=== PATIENT | male | born 1940 | race Caucasian/White ===

== ENCOUNTER → 2024-03-25 | Outpatient (CLI) | payer MEDICARE, SELFPAY ==
[2024-03-25 09:01] LABS: B-Type Natriuretic Peptide < 20 pg/mL (0-100)
[2024-03-25 09:07] LABS: Albumin, Serum 4.4 gm/dL (3.4-4.8); Anion Gap 3 (7-16); BUN/Creatinine Ratio 14 Ratio (12-20); Blood Urea Nitrogen 21 mg/dL (9-23); Calcium 9.6 mg/dL (8.3-10.6); Calcium (Corrected) 9.6 mg/dL (8.5-10.1); Carbon Dioxide 31.8 mMol/L (20.0-31.0); Chloride 102 mMol/L (98-107); Creatinine (Component) 1.5 mg/dL (0.6-1.3); Glucose 92 mg/dL (74-106); Osmolality,Calculated 276 (275-295); Phosphorous 3.6 mg/dL (2.4-5.1); Potassium 4.6 mMol/L (3.4-5.1); Sodium 137 mMol/L (136-145); eGFR 46 See Note
== END | disposition home or self-care (01) ==
LOC: COPL 07:33
PROVIDERS: PCP Specialist; Referring Provider Specialist; Visit Provider Specialist
DX: I50.22 Chronic systolic (congestive) heart failure (principal)
CPT/HCPCS: 36415; 80069; 83880

== ENCOUNTER → 2024-04-24 | Outpatient (CLI) | payer MEDICARE, SELFPAY ==
[2024-04-24 10:36] LABS: Basophils # (Auto) 0.1 Thou/mm3 (0.0-0.2); Basophils % (Auto) 1 % (0-2.5); Eosinophils # (Auto) 0.2 Thou/mm3 (0.0-0.5); Eosinophils % (Auto) 3 % (0-10); Hematocrit 43.3 % (41.0-53.0); Hemoglobin 14.5 g/dL (13.5-16.0); Immature Granulocytes % (Auto) 0 % (0-0); Immature Granulocytes Auto 0.01 Thou/mm3 (0.00-0.00); Lymphocytes # (Auto) 1.5 Thou/mm3 (1.0-4.8); Lymphocytes % (Auto) 28 % (10-50); Mean Corpuscular HGB Conc 33.5 g/dl (31.0-37.0); Mean Corpuscular Volume 102 fL (80-100); Monocytes # (Auto) 0.6 Thou/mm3 (0.0-0.8); Monocytes % (Auto) 12 % (0-12); Neutrophils # (Auto) 2.9 Thou/mm3 (1.8-7.7); Neutrophils % (Auto) 56 % (37-80); Nucleated Red Blood Cell % 0 /100 WBC (0); Platelet Count 208 Thou/mm3 (140-440); RDW Standard Deviation 50.3 fL (35.1-43.9); Red Blood Count 4.26 Miln/mm3 (4.50-5.90); White Blood Count 5.2 Thou/mm3 (3.8-10.6)
[2024-04-24 10:59] LABS: Sed Rate (ESR) 8 mm/hr (0-20)
[2024-04-24 11:02] LABS: Alanine Aminotransferase 28 U/L (10-49); Albumin, Serum 4.4 gm/dL (3.4-4.8); Albumin/Globulin Ratio 2.3 (1.2-2.2); Alkaline Phosphatase 63 U/L (46-116); Anion Gap 4 (7-16); Aspartate Amino Transferase 23 U/L (0-34); BUN/Creatinine Ratio 14 Ratio (12-20); Bilirubin,Total 0.8 mg/dL (0.3-1.2); Blood Urea Nitrogen 21 mg/dL (9-23); C-Reactive Protein < 0.4 mg/dL (0.0-0.9); Calcium 9.6 mg/dL (8.3-10.6); Calcium (Corrected) 9.6 mg/dL (8.5-10.1); Carbon Dioxide 32.9 mMol/L (20.0-31.0); Chloride 100 mMol/L (98-107); Creatinine (Component) 1.5 mg/dL (0.6-1.3); Globulin 1.9 gm/dL (2.3-3.5); Glucose 102 mg/dL (74-106); Osmolality,Calculated 276 (275-295); Potassium 4.6 mMol/L (3.4-5.1); Procalcitonin 0.07 ng/ml (0.0-0.49); Sodium 137 mMol/L (136-145); Total Protein 6.3 gm/dL (5.7-8.2); eGFR 46 See Note
== END | disposition home or self-care (01) ==
LOC: COPL 09:09
PROVIDERS: PCP Specialist; Referring Provider Orthopaedic Surgery; Visit Provider Orthopaedic Surgery
DX: T84.53XA Infection and inflammatory reaction due to internal right knee prosthesis, initial encounter (principal)
CPT/HCPCS: 36415; 80053; 84145; 85025; 85652; 86140

== ENCOUNTER 2024-05-12 06:43 | Observation (INO) | payer MEDICARE, SELFPAY ==
[2024-05-12] VITALS (9 sets, daily range): BP systolic 146–173; BP diastolic 66–84; PULSE 70–84; RESP 16–23; TEMP 36.4–36.6; O2SAT 94–98; BMI 32.6
--- NOTE | 2024-05-12 07:15 | XR_ITS ---
Examination: Tibia-Fibula, left , 2 views Technique: Tibia-fibula AP lateral 2 views Date and time of exam: May 12, 2024 0714 hrs. Indications: Patient fell today with injury to the lower leg, lower leg pain. Findings: No acute fracture Partial visualization left knee arthroplasty Impression: No acute fracture
--- NOTE | 2024-05-12 07:15 | XR_ITS ---
Examination: Knee, left , 3 views Technique: Knee AP, lateral, oblique 3 views Date and time of exam: May 12, 2024 0742 hrs. Indications: Patient fell today with injury to the knee, knee pain. Findings: Prominent osteopenia Total left knee arthroplasty Satisfactory alignment No fracture No loosening of the prosthetic components Impression: No acute fracture
--- NOTE | 2024-05-12 07:17 | PD.EDRME ---
Rapid Medical Screening Exam E Arrival date/time: 05/12/24 06:43 This is an 84-year-old male that comes in with complaints of swelling to his left lower extremity. Patient had a fall a couple days ago. Patient tripped. Patient reports no loss of consciousness but he injured his left knee and lateral lower leg. Patient has a lot of swelling to his left lower extremity. Patient patient reports an episode of vomiting yesterday. Patient denies head or neck pain. Patient denies any other injuries. Patient reports that he takes Coumadin for atrial flutter. Patient has a history of hyperlipidemia, hypothyroidism, hernia repair in the past. I have greeted and performed a focused initial assessment of this patient. Initial appropriate labs ordered at this time. A comprehensive ED assessment and evaluation of the patient and analysis of all test and completion of medical decision making process will be conducted by additional ED provider. Chief Complaint: Extremity Injury, Lower Time Seen by Provider: 05/12/24 06:54 Vital signs: Vital Signs Temperature 97.8 F 05/12/24 06:51 Pulse Rate 72 05/12/24 06:51 Respiratory Rate 19 05/12/24 06:51 Blood Pressure 158/68 H 05/12/24 06:51 Pulse Oximetry (%) 96 05/12/24 06:51 Oxygen Delivery Method Room Air 05/12/24 06:51
[2024-05-12 07:43] LABS: Basophils % (Auto) 0 % (0-2.5); Eosinophils # (Auto) 0.1 Thou/mm3 (0.0-0.5); Eosinophils % (Auto) 2 % (0-10); Hematocrit 35.1 % (41.0-53.0); Hemoglobin 11.8 g/dL (13.5-16.0); Immature Granulocytes % (Auto) 0 % (0-0); Immature Granulocytes Auto 0.03 Thou/mm3 (0.00-0.00); Lymphocytes # (Auto) 0.9 Thou/mm3 (1.0-4.8); Lymphocytes % (Auto) 13 % (10-50); Mean Corpuscular HGB Conc 33.6 g/dl (31.0-37.0); Mean Corpuscular Hemoglobin 33.8 pg (25.0-35.0); Mean Corpuscular Volume 101 fL (80-100); Monocytes # (Auto) 1.1 Thou/mm3 (0.0-0.8); Monocytes % (Auto) 16 % (0-12); Neutrophils # (Auto) 4.7 Thou/mm3 (1.8-7.7); Neutrophils % (Auto) 69 % (37-80); Nucleated Red Blood Cell % 0 /100 WBC (0); Platelet Count 190 Thou/mm3 (140-440); RDW Standard Deviation 49.6 fL (35.1-43.9); Red Blood Count 3.49 Miln/mm3 (4.50-5.90); White Blood Count 6.9 Thou/mm3 (3.8-10.6)
[2024-05-12 08:04] LABS: Alanine Aminotransferase 24 U/L (10-49); Albumin, Serum 4.3 gm/dL (3.4-4.8); Alkaline Phosphatase 58 U/L (46-116); Anion Gap 5 (7-16); Aspartate Amino Transferase 16 U/L (0-34); BUN/Creatinine Ratio 12 Ratio (12-20); Bilirubin,Total 0.9 mg/dL (0.3-1.2); Blood Urea Nitrogen 17 mg/dL (9-23); Calcium 9.3 mg/dL (8.3-10.6); Calcium (Corrected) 9.3 mg/dL (8.5-10.1); Carbon Dioxide 30.6 mMol/L (20.0-31.0); Chloride 96 mMol/L (98-107); Creatinine (Component) 1.4 mg/dL (0.6-1.3); Estimated Creatinine Clearance 46.1 mL/min (>60); Globulin 2.1 gm/dL (2.3-3.5); Glucose 123 mg/dL (74-106); Osmolality,Calculated 267 (275-295); Potassium 4.5 mMol/L (3.4-5.1); Sodium 132 mMol/L (136-145); Total Protein 6.4 gm/dL (5.7-8.2); eGFR 50 See Note
--- NOTE | 2024-05-12 08:43 | PD.EDLOWEX ---
Lower Extremity Injury RME/HPI General Chief Complaint: Extremity Injury, Lower Stated Complaint: HEMATOMA LEFT LEG Time Seen by Provider: 05/12/24 06:54 Arrival date/time: 05/12/24 06:43 RME / HPI RME / HPI Narrative: 05/12/24 06:43 This is an 84-year-old male that comes in with complaints of swelling to his left lower extremity. Patient had a fall a couple days ago. Patient tripped. Patient reports no loss of consciousness but he injured his left knee and lateral lower leg. Patient has a lot of swelling to his left lower extremity. Patient patient reports an episode of vomiting yesterday. Patient denies head or neck pain. Patient denies any other injuries. Patient reports that he takes Coumadin for atrial flutter. Patient has a history of hyperlipidemia, hypothyroidism, hernia repair in the past. I have greeted and performed a focused initial assessment of this patient. Initial appropriate labs ordered at this time. A comprehensive ED assessment and evaluation of the patient and analysis of all test and completion of medical decision making process will be conducted by additional ED provider. DR. EDWARDS MAIN ED EVALUATION 84 year old male with history of atrial flutter on Coumadin, hypertension, hyperlipidemia, hypothyroidism presents to the ED for evaluation of lower extremity swelling and pain today. Reports he had a ground level mechanical fall 4 days ago Monday. Since fall has noticed pain to the left knee and laterally with bruising and swelling that is progressively worsening. No other injuries reported. Denies any pain to his hip, head injury, LOC, neck pain. Related Data Home Medications ?Medication ?Instructions ?Recorded ?Confirmed albuterol sulfate 90 mcg/actuation 1 puff inhalation DAILY ##0 10/04/14 01/06/24 aerosol inhaler (ProAir HFA) omeprazole 20 mg capsule,delayed 20 mg PO QDAY PRN GERD ##0 10/04/14 01/04/24 release (Prilosec) cholecalciferol (vitamin D3) 25 2,000 unit PO QDAY #0 tabs 11/28/16 01/04/24 mcg (1,000 unit) capsule (Vitamin D3) Multivits,Ca,Min/Iron/FA/Lycop 1 tab PO QDAY #0 tabs 05/26/17 01/04/24 (Centrum Men's Tablet) gabapentin 100 mg capsule 100 mg PO TID neuropathy #0 caps 05/26/17 01/04/24 levothyroxine 100 mcg PO QDAY hypothyroidism 06/07/23 01/04/24 simvastatin 10 mg PO QPM DM 2 06/07/23 01/04/24 potassium chloride 10 mEq 20 meq PO DAILY 01/04/24 01/04/24 tablet,extended release warfarin 5 mg tablet 5 mg PO DAILY 01/04/24 01/04/24 Previous Rx's ?Medication ?Instructions ?Recorded doxycycline hyclate 100 mg tablet 100 mg PO BID knee infection #60 10/08/14 tabs Allergies Allergy/AdvReac Type Severity Reaction Status Date / Time theophylline Allergy Severe Seizure Verified 05/12/24 06:46 celebrex AdvReac Unknown unknown Uncoded 05/12/24 06:46 Review of Systems Review of Systems Narrative Review of Systems: GEN: No fever, no chills EYES: No discharge, no pain HEENT: No ear pain, no congestion, no sore throat PULM: No shortness of breath, no cough, no congestion CV: No chest pain, no palpitations GI: No nausea, no vomiting, no diarrhea, no pain, no constipation : No frequency, no urgency and no dysuria MUSC/SKEL: +left knee pain, +left lower extremity swelling, no back pain SKIN: No rash NEURO: No weakness, no headache Past Medical History Past Medical History CARDIAC: Positive Cardiac Disorders, Hypercholesterolemia, Cellulitis and Hypertension RESPIRATORY: Positive Asthma GASTROINTESTINAL: Positive Diverticulosis and Obesity MUSCULOSKELETAL: Positive Osteomyelitis ENDOCRINE: Positive Endocrine Disorders, Diabetes Mellitus Type 2 and Hypothyroidism Family History FAMILY HISTORY: Positive Family Neurologic Problems (bro AAA, bro aneurysm of brain;), Family Psychiatric Problems, Family Respiratory Disorders, Family Gastrointestinal Problems and Family Cancer Surgical History SURGICAL: Positive Cardiac Catheterization, Eye Surgery and Abdominal Surgery Social History SMOKING STATUS: Never smoker SECOND HAND EXPOSURE: Yes SUBSTANCE USE: does not use ED Exam Narrative Physical exam: GENERAL APPEARANCE: Well hydrated, well nourished, in no acute distress. VITALS: All vitals were reviewed and the pulse ox is 96% on room air which is normal according to my interpretation. HEENT: Normocephalic, atramatic, EOMI, EACs are patent. Moist oromucosa. No jaundice NECK: Supple, no JVD or bruits. CARDIOVASCULAR: Heart regular without S3-S4 or murmur. No rubs or gallops. LUNGS/CHEST: Clear to auscultation bilaterally. No rales, rhonchi, or wheezing. Normal inspection. ABDOMEN: Soft, nontender, with normal bowel sounds. No pulsatile masses. No rebound, rigidity, or guarding. No incarcerated hernia. Normal inspection and palpation. EXTREMITIES: Left lower leg swollen with large hematoma medial to the left knee and posterior aspect of left knee, lateral to the left upper fibula measuring about 10cm long and 30cm wide. Palpable dorsalis pedis pulse. No edema, clubbing, or cyanosis. SKIN: Warm and dry without rashes. Normal inspection. MUSCULOSKELETAL: No gross deformity, full ROM all extremities NEURO: Alert and oriented x3. Cranial nerves II through XII grossly intact. There are no other motor or sensory deficits noted. PSYCHIATRIC: Normal mood and affect. No psychosis. Course Quality Measures none Orders Category Date Time Status CT Screening NOW Care 05/12/24 08:[address] LE LT w con Stat Exams 05/12/24 08:47 Completed XR knee LT 3V Stat Exams 05/12/24 07:15 Completed XR tibia fibula LT 2V Stat Exams 05/12/24 07:15 Completed CBC Stat Lab 05/12/24 07:25 Completed Comprehensive Metabolic Panel Stat Lab 05/12/24 07:25 Completed PT [Prothrombin Time with INR] Stat Lab 05/12/24 07:25 Completed Tetanus, Diphtheria Toxoids/Pf [Tenivac-Adult] Med 05/12/24 08:47 Discontinued 0.5 ml IMI .ONCE ONE Vital Signs Vital signs: Vital Signs Temperature 97.8 F 05/12/24 06:51 Pulse Rate 72 05/12/24 06:51 Respiratory Rate 19 05/12/24 06:51 Blood Pressure 158/68 H 05/12/24 06:51 Pulse Oximetry (%) 96 05/12/24 06:51 Oxygen Delivery Method Room Air 05/12/24 06:51 Extremity Injury, Lower MDM Narrative MDM Narrative:: Ladan Meredith am scribing for and in the presence of Dr. Edwards. CBC unremarkable. CMP negative. Pro time however is leigh high at 50. INR of 5. X-ray of the left knee interpreted by me: No fracture. No dislocation. Hardware is intact. Positive for soft tissue swelling. No effusion. No foreign body other than hardware from the surgery. No free air. X-ray of the left tib-fib interpreted by me: No fracture. No dislocation. Hardware is intact at the knee. Positive for some soft tissue swelling proximally. Patient has a good pulse in the left dorsalis pedis. And he has intact CSM full range of motion of the left foot. However he has a large hematoma in the lateral aspect of the left proximal tib-fib extending to behind the left knee. In an area measuring approximately 15 cm wide and 20 cm long. He also had a small hematoma in the left knee medial aspect. There is no evidence of compartment syndrome at this time. The reason why I gave him tetanus vaccine is because he does have some abrasion on the skin. No laceration to be repaired. CT of the left lower extremity interpreted by me: Hardware is intact. In fact the hardware causing the shadow. He does have a hematoma lateral to the left knee and slightly below it. No evidence of abscess. He has calcification of the vessels. But clinically speaking he does have good left dorsalis pedis pulse. 12:50 PM, I spoke to and discussed with Dr. Vigil, hospitalist on-call. And he agreed to admit the patient for further evaluation treatment and observation. Patient data External records reviewed:: [facility] previous records (I reviewed ED visit on 01/04/2024 through 01/06/2024) Clinical information provided by:: patient Social determinants that could affect healthcare access:: none Patient has the following chronic illnesses:: atrial flutter on Coumadin, hypertension, hyperlipidemia, hypothyroidism How is presenting disease/condition affected by chronic disease/condition?: exacerbated by Evaluation data The following diagnostics were reviewed and interpreted by me:: lab results and radiology exam(s) Lab and/or radiology exams considered but not ordered:: None Interpretation Summary: Ordering Physician: Marie Tatum NP Date of Service: 05/12/24 Procedure(s): XR knee LT 3V Accession Number(s): [id number] cc: Jose Mendoza MD; Roger Sewell MD; Marie Tatum NP~ Examination: Knee, left , 3 views Technique: Knee AP, lateral, oblique 3 views Date and time of exam: May 12, 2024 0742 hrs. Indications: Patient fell today with injury to the knee, knee pain. Findings: Prominent osteopenia Total left knee arthroplasty Satisfactory alignment No fracture No loosening of the prosthetic components Impression: No acute fracture Dictated By: Roger Sewell MD Signed By: <Electronically signed by Roger Sewell MD in OV> 05/12/24 0836 Ordering Physician: Marie Tatum NP Date of Service: 05/12/24 Procedure(s): XR tibia fibula LT 2V Accession Number(s): [id number] cc: Jose Mendoza MD; Roger Sewell MD; Marie Tatum NP~ Examination: Tibia-Fibula, left , 2 views Technique: Tibia-fibula AP lateral 2 views Date and time of exam: May 12, 2024 0714 hrs. Indications: Patient fell today with injury to the lower leg, lower leg pain. Findings: No acute fracture Partial visualization left knee arthroplasty Impression: No acute fracture Dictated By: Roger Sewell MD Signed By: <Electronically signed by Roger Sewell MD in OV> 05/12/24 0836 Ordering Physician: Marcos Edwards MD Date of Service: 05/12/24 Procedure(s): CT LE LT w con Accession Number(s): [id number] cc: Jose Mendoza MD; Roger Sewell MD; Marcos Edwards MD~ Examination: CT left lower extremity with intravenous contrast 2-D sagittal reconstructions. 2-D coronal reconstructions. 3-D reconstructions. Date and time of exam:May 12, 2024 10:38 PM Indications: Patient fell today with injury to the left lower extremity left lower extremity swelling and pain CTDI: vol (mGy):12.3 DLP: (mGycm):1504 Technique: Multiple 1.25 mm axial sections of the left lower extremity with intravenous contrast, 30 cc Isovue-300 have been obtained. 2-D sagittal and coronal reconstructions have been obtained. 3-D reconstructions have been obtained. Low dose protocols were performed. One or more of the following dose reduction techniques were used; automated exposure control, adjustment of the mA and/or KV according to patient size, use of iterative reconstruction technique. Findings: Hematoma with low density center in the soft tissue lateral to the proximal tibia fibula, 10 x 7 x 10 cm Femur tibia-fibula appear intact Mild edema in the subcutaneous fatty tissue Old fracture deformity distal left femoral shaft No acute fracture or hip dislocation Impression: Soft tissue hematoma lateral to the proximal tibia fibula, 10 x 7 x 10 cm Dictated By: Roger Sewell MD Signed By: <Electronically signed by Roger Sewell MD in OV> 05/12/24 1216 Medications / Prescriptions Medications or Prescriptions considered but not ordered:: None Medication administrations:: Medication Administration History Discontinued Medications Tetanus/Diphtheria Toxoids (Tetanus,Diphtheria Toxoids/Pf (Adult) 0.5 Ml Syringe) 0.5 ml IMi .ONCE ONE Stop: 05/12/24 08:48 Last Admin: 05/12/24 10:46 Dose: 0.5 ml Documented By: VG See above Consultations Consultation(s) initiated? (list below): Yes Consultation #1 (Physician, Specialty, Details): I spoke with hospitalist Dr. Vigil. Discussed patients PMHx, HPI, ED course, exam findings, labs, and radiology results. The hospitalist agree to accept the patient for admission. Time: 12:48 Diagnosis Most likely diagnosis given after review of the tests above:: Hematoma Admission Indicated Admission indicated?: indicated Admission Request Was there a request for admission?: Yes Admission Attestation Admission request attestation: Discussed case with [] from Hospitalist service regarding admission. Discussed patients ED course, exam findings, labs, and radiology results. The Hospitalist [agrees,declines] to accept the patient for admission. Disposition Plan Disposition Plan: Admit Discharge Plan Plan Patient Disposition: Admit Acute Care w/in Hospital Disposition Comment: Stable for admit Prescriptions/Referrals Prescriptions/Med Rec: No Action omeprazole [Prilosec] 20 MG capsule,delayed release(/EC) 20 mg PO QDAY PRN (Reason: GERD) Qty: 0 Patient Comments: TO SUPPRESS GASTRIC ACID SECRETIONS albuterol sulfate [ProAir HFA] 8.5 GM HFA aerosol inhaler 1 puff Inhalation DAILY Qty: 0 doxycycline hyclate 100 MG tablet 100 mg PO BID Qty: 60 1RF cholecalciferol (vitamin D3) [Vitamin D3] 1,000 UNIT tablet 2,000 unit PO QDAY Qty: 0 gabapentin 100 MG capsule 100 mg PO TID Qty: 0 Patient Comments: Pt takes 1 tab in am,2 tabs at HS Multivits,Ca,Min/Iron/FA/Lycop (Centrum Men's Tablet) 1 EACH tablet 1 tab PO QDAY Qty: 0 warfarin 5 mg Tablet 5 mg PO DAILY potassium chloride 10 mEq Tablet Extended Release 20 meq PO DAILY Hold Instructions: Resume on 01/12/24. 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
--- NOTE | 2024-05-12 08:47 | XR_ITS ---
Examination: CT left lower extremity with intravenous contrast 2-D sagittal reconstructions. 2-D coronal reconstructions. 3-D reconstructions. Date and time of exam:May 12, 2024 10:38 PM Indications: Patient fell today with injury to the left lower extremity left lower extremity swelling and pain CTDI: vol (mGy):12.3 DLP: (mGycm):1504 Technique: Multiple 1.25 mm axial sections of the left lower extremity with intravenous contrast, 30 cc Isovue-300 have been obtained. 2-D sagittal and coronal reconstructions have been obtained. 3-D reconstructions have been obtained. Low dose protocols were performed. One or more of the following dose reduction techniques were used; automated exposure control, adjustment of the mA and/or KV according to patient size, use of iterative reconstruction technique. Findings: Hematoma with low density center in the soft tissue lateral to the proximal tibia fibula, 10 x 7 x 10 cm Femur tibia-fibula appear intact Mild edema in the subcutaneous fatty tissue Old fracture deformity distal left femoral shaft No acute fracture or hip dislocation Impression: Soft tissue hematoma lateral to the proximal tibia fibula, 10 x 7 x 10 cm
[2024-05-12 09:49] LABS: INR 5.1 (0.9-1.3); Prothrombin Time 50.1 Seconds (9.0-12.2)
[2024-05-12] MEDS: TETANUS,DIPHTHERIA TOXOIDS/PF (ADULT) 0.5 ML SYRINGE IMi (10:46)
--- NOTE | 2024-05-12 13:16 | XR_ITS ---
Examination: AP chest single view Technique one AP portable sitting chest single view Exam date and time: May 12, 2024 1345 hrs. Comparison January 04, 2024 Indications: Shortness of breath today. Findings: Opacity left base retrocardiac obscuring detail left hemidiaphragm Minor elevation right hemidiaphragm No major cardiac enlargement Impression: Early pneumonia left base
--- NOTE | 2024-05-12 13:23 | PD.RESHP ---
Documentation for date of: 05/12/24 [facility] History of Present Illness History of present illness: This is an 83-year-old male with PMHx of atrial flutter on WARFARIN, HTN, HLD, and hypothyroidism presenting with left knee swelling following a fall. 5 days ago, on Monday he fell after tripping over a curb, and landed on his left knee. Initially patient having mild left knee pain. However last couple days he noticed worsening swelling and discoloration of left knee as well as increased pain. Has been trying compression socks but has not relieved the swelling. Rates the pain an 8 out of 10, worse with movement and to touch. Denies head trauma, loss of consciousness, headaches, fevers, chills, chest pain, shortness of breath, GI or urinary symptoms. Patient has been on WARFARIN for atrial flutter, state insurance does not cover DOAC or NOAC. ED COURSE: Afebrile, BP 158/68, HR 72, RR 19, satting 96% on room air WBC 6.9, Hgb 11.8 (baseline 14-15), PLT 190 PT 50.1, INR 5.1 Sodium 132, creatinine 1.4 near baseline Left tibia/fibular x-ray without acute fracture left lower extremity CT soft tissue hematoma lateral to the proximal tibia/fibula, 10 x 7 x 10 cm in size Hospitalist team was consulted. Will admit the patient for optimizing INR by monitoring hematoma. We gave VITAMIN K 1 milligram. Cardiology, Dr. Walsh, has been consulted. Pending recommendations. PMHx: Atrial flutter, HTN, HLD, hypothyroidism PSHx: Bilateral knee replacements, 2002 in 2004 MEDS: WARFARIN 5 mg, AMIODARONE 200 mg daily, SPIRONOLACTONE 25 mg daily, BUMEX 0.5 mg daily, SIMVASTATIN 10 mg, LEVOTHYROXINE 100 mcg, GABAPENTIN 100 mg, DOXYCYCLINE 100 mg. ALLERGIES: THEOPHYLLINE (seizures), CELECOXIB (unknown) SH: Denies history of tobacco, alcohol, or drug use. Exam Vital Signs Temp Pulse Resp BP Pulse Ox O2 Del Method 97.9 F 73 16 163/76 H 97 Room Air 05/12/24 12:00 05/12/24 12:00 05/12/24 12:05/12/24 12:05/12/24 12:05/12/24 10:02 Narrative Exam GENERAL: Normal appearing elderly male, NAD HEENT: NCAT.?RUBI. Oral mucosa is moist. Patent Nares NECK: Supple, nontender, no thyromegaly, no meningismus, no JVD, no step offs CHEST: Symmetrical, atraumatic, and with equal expansion, Nontender on palpation no deformity and no crepitus. CARDIOVASCULAR: RRR, no m/g/r LUNGS: Bilateral wheezing on exam, no rales or rhonchi. Symmetrical chest rise. No intercostal subcostal retraction. ABDOMEN: Soft, flat, nontender. No guarding/rebound tenderness/masses. +BS EXTREMITIES: Left knee hematoma about 10 x 10 x 6 cm in size, tender to touch, mild blood oozing at different sites around the hematoma. Left lower extremity 3+ nonpitting edema below the the knee. No signs of compartment syndrome. Right lower extremity 1+ edema. Pulses intact bilaterally SKIN: Warm and dry, no jaundice/rashes. MSK: No lumbar or midline, no CVA, no paraspinal muscle spasm or tenderness. NEURO: MONTERROSO x4, CN II-XII grossly intact.?No focal neurologic deficits. PSYCHIATRIC: Normal mood and affect, cooperative, no SI or HI or hallucinations. Results: Labs 05/12/24 07:25 05/12/24 07:25 Labs: Short CBC 05/12/24 Range/Units 07:25 WBC 6.9 (3.8-10.6) Thou/mm3 Hgb 11.8 L (13.5-16.0) g/dL Hct 35.1 L (41.0-53.0) % Plt Count 190 (140-440) Thou/mm3 BMP 05/12/24 07:25 Sodium 132 L Potassium 4.5 Chloride 96 L Carbon Dioxide 30.6 BUN 17 Creatinine 1.4 H Glucose 123 H Calcium 9.3 Liver Function 05/12/24 Range/Units 07:25 Total Bilirubin 0.9 (0.3-1.2) mg/dL AST 16 (0-34) U/L ALT 24 (10-49) U/L Alkaline Phosphatase 58 (46-116) U/L Albumin 4.3 (3.4-4.8) gm/dL Quality Measures Quality Measures none Advance care planning discussed with:: patient Medications Home Medications and Allergies Home Medications ?Medication ?Instructions ?Recorded ?Confirmed ?Type albuterol sulfate 90 mcg/actuation 1 puff inhalation DAILY ##0 10/04/14 01/06/24 History aerosol inhaler (ProAir HFA) omeprazole 20 mg capsule,delayed 20 mg PO QDAY PRN GERD ##0 10/04/14 01/04/24 History release (Prilosec) cholecalciferol (vitamin D3) 25 2,000 unit PO QDAY #0 tabs 11/28/16 01/04/24 History mcg (1,000 unit) capsule (Vitamin D3) Multivits,Ca,Min/Iron/FA/Lycop 1 tab PO QDAY #0 tabs 05/26/17 01/04/24 History (Centrum Men's Tablet) gabapentin 100 mg capsule 100 mg PO TID neuropathy #0 caps 05/26/17 01/04/24 History levothyroxine 100 mcg PO QDAY hypothyroidism 06/07/23 01/04/24 History simvastatin 10 mg PO QPM DM 2 06/07/23 01/04/24 History potassium chloride 10 mEq 20 meq PO DAILY 01/04/24 01/04/24 History tablet,extended release warfarin 5 mg tablet 5 mg PO DAILY 01/04/24 01/04/24 History Allergies Allergy/AdvReac Type Severity Reaction Status Date / Time theophylline Allergy Severe Seizure Verified 05/12/24 06:46 celebrex AdvReac Unknown unknown Uncoded 05/12/24 06:46 Visit Medications Acetaminophen (Acetaminophen 325 Mg Tablet) 650 mg PO Q6H PRN PRN Reason: Fever >100.1 Stop: 06/11/24 13:13 Hydrocodone Bitart/Acetaminophen (Hydrocodone/Apap 10/325 Tab) 1 tab PO Q4H PRN PRN Reason: Pain Scale 4-10 Stop: 05/17/24 13:13 Amiodarone HCl (Amiodarone Hcl 200 Mg Tablet) 200 mg PO DAILY [facility] Stop: 06/11/24 13:29 Atorvastatin Calcium (Atorvastatin Calcium 10 Mg Tablet) 10 mg PO HS [facility] Stop: 06/11/24 20:59 Bumetanide (Bumetanide 0.5 Mg Tablet) 2 mg PO DAILY [facility] Stop: 06/12/24 08:59 Gabapentin (Gabapentin 100 Mg Capsule) 100 mg PO BID JUAN Stop: 06/11/24 13:29 Ondansetron HCl (Ondansetron Inj 2 Mg/Ml Inj 2 Ml) 4 mg IV Q6H PRN; Protocol PRN Reason: NAUSEA OR VOMITING Stop: 06/11/24 13:13 Pantoprazole Sodium (Pantoprazole Inj 40 Mg Vial) 40 mg IV QDAY [facility] Stop: 06/11/24 13:19 Spironolactone (Spironolactone 25 Mg Tablet) 25 mg PO DAILY JUAN Stop: 06/12/24 08:59 Discontinued Medications Cyanocobalamin (Cyanocobalamin Inj 1,000 Mcg/Ml Vial) 1,000 mcg IM X1 ONE Stop: 05/12/24 13:18 Phytonadione (Phytonadione Inj 1 Mg/0.5 Ml Syr) 1 mg PO X1 ONE Stop: 05/12/24 13:17 Tetanus/Diphtheria Toxoids (Tetanus,Diphtheria Toxoids/Pf (Adult) 0.5 Ml Syringe) 0.5 ml IMi .ONCE ONE Stop: 05/12/24 08:48 Last Admin: 05/12/24 10:46 Dose: 0.5 ml Vitamin B Complex/Vit C/Folic Acid (Vit B12/Vit C/Fa (Nephrovite) Tablet) 1 tab PO X1 ONE Stop: 05/12/24 13:18 Assessment & Plan Plan In summary: 83-year-old male with PMHx of a flutter on WARFARIN, HTN, HLD, hypothyroidism presenting with expanding hematoma of the left knee secondary to supratherapeutic INR 5.1. Given VITAMIN K 1 mg once. Pending cardiology recommendations. Left lower extremity hematoma Supratherapeutic INR Atrial flutter, on COUMADIN Presenting with left lower extremity hematoma following a fall. Discrete swelling over hematoma on exam, with blood oozing of multiple sites only hematoma, 3+ left lower extremity edema below the knee. No signs of compartment syndrome. Pulses intact bilaterally. Patient on COUMADIN therapy for atrial flutter, states insurance does not cover DOAC/NOAC. No head trauma. No focal neurological deficits. Supratherapeutic INR 5.1. ? Holding WARFARIN ? S/p VITAMIN K 1 mg x 1 ? Resumed home AMIODARONE 200 mg daily ? Monitoring INR Q6H ? Wound care ? Pending EKG ? Pending troponin ? Pending cardiology recommendations ? CHF exacerbation Admits to worsening shortness of breath, easily fatigued upon walking. On exam there was bilateral lower extremity pitting edema worse on the left 2/2 hematoma. Lung exam showed wheezing but no rales or rhonchi. Most recent echo 12/2023 EF 50-55%, normal LV size/function. CXR showed early pneumonia, no vascular congestion ? Resumed home BUMEX 0.5 mg daily ? Holding home SPIRONOLACTONE 25 mg daily 2/2 kidney function ? Follow-up echocardiogram HTN, HLD, hypothyroidism History of above, on home meds. BP 158/82, HR 71. TSH 10.28 from 12/2023. Lipid panel from 12/2023 showed TG 313, HDL 61. Patient on home SIMVASTATIN 10 mg daily. Low benefit for statin and age greater than 75-year-old. ? Resumed home AMIODARONE, SPIRONOLACTONE, BUMEX as above ? Increased home SIMVASTATIN dose from 10 to 40 mg daily ? Resumed home LEVOTHYROXINE 100 mg AC BR ? Pending TSH Asthma History of asthma. Mild bilateral wheezing on exam. No signs or symptoms of asthma exacerbation. ? Resumed home ALBUTEROL inhaler q.2h. PRN Health maintenance Diet: Cardiac GI prophylaxis: PROTONIX DVT prophylaxis: Not indicated, INR 5.1 Antibiotics: None CODE STATUS: Full code Disposition: Cardiology recommendations, INR optimization. Patient case was discussed with attending, Dr. Norm Vigil MD and senior resident Dr. Landa. Chandni Srinivasan DO PGYI Attending Provider Attestation/Addendum I reviewed labs, imaging, EKG, home medications and prior available records. Face to face evaluation was performed by me. I have personally examined the patient and discussed assessment and plan with the IM team. I reviewed the resident note and agree with the plan with exceptions as below. Ground-level fall Left lower extremity hematoma Atrial flutter on warfarin, controlled ventricular rate Supratherapeutic INR Stop warfarin Gave 1 mg p.o. vitamin K given INR more than 5 Monitor PTT/INR Monitor H&H Consulted cardiology PT evaluation
[2024-05-12] MEDS: PANTOPRAZOLE INJ 40 MG VIAL IV (13:32)
[2024-05-12] MEDS: GABAPENTIN 100 MG CAPSULE PO ×2 (13:34→20:53)
[2024-05-12] MEDS: AMIODARONE HCL 200 MG TABLET PO (13:36)
[2024-05-12] MEDS: PHYTONADIONE INJ 1 MG/0.5 ML SYR PO (13:39)
--- NOTE | 2024-05-12 13:39 | PC.NURSE ---
Dr. Srinivasan and Dr. Landa bedside talking with pt. and pt.'s caregiver.
[2024-05-12] MEDS: CYANOCOBALAMIN INJ 1,000 mCg/ML VIAL 1000 MCG IM (13:57)
[2024-05-12] MEDS: VIT B12/Vit C/FA (Nephrovite) TABLET 1 TAB PO (14:00)
[2024-05-12 15:46] LABS: B-Type Natriuretic Peptide < 20 pg/mL (0-100); Troponin I < 0.020 ng/mL (0.0-0.045)
--- NOTE | 2024-05-12 16:04 | PD.ADDPROG ---
Addendum Progress Note Addendum Date of report being addended: 05/13/24 Narrative: I reviewed labs, imaging, EKG, home medications and prior available records. Face to face evaluation was performed by me. I have personally examined the patient and discussed assessment and plan with the IM team. I reviewed the resident note and agree with the plan with exceptions as below. Ground-level fall Left lower extremity hematoma Atrial flutter on warfarin, controlled ventricular rate Supratherapeutic INR Stop warfarin Gave 1 mg p.o. vitamin K given INR more than 5 Monitor PTT/INR Monitor H&H Consulted cardiology PT evaluation
[2024-05-12] MEDS: INSULIN LISPRO (AdmeLOG) 1 UNIT/0.01 ML UNIT SC ×2 (17:52→20:53)
[2024-05-12] MEDS: guaiFENesin SYRUP 200 MG/10 ML UDC PO ×2 (17:56→23:33)
[2024-05-12 18:44] LABS: INR 3.9 (0.9-1.3)
[2024-05-12 18:48] LABS: Prothrombin Time 38.6 Seconds (9.0-12.2)
[2024-05-12] MEDS: ALBUTEROL INH 8 GM 2 PUFF INH (20:26)
[2024-05-12] MEDS: ATORVASTATIN CALCIUM 20 MG TABLET 40 MG PO (20:53)
[2024-05-12 22:04] LABS: Troponin I < 0.020 ng/mL (0.0-0.045)
[2024-05-12 23:52] LABS: INR 3.3 (0.9-1.3)
[2024-05-12 23:54] LABS: Prothrombin Time 32.9 Seconds (9.0-12.2)
[2024-05-13] VITALS (8 sets, daily range): BP systolic 132–154; BP diastolic 60–79; PULSE 75–83; RESP 17–20; TEMP 36.2–37.4; O2SAT 93–96
[2024-05-13] MEDS: PHYTONADIONE INJ 10 MG/ML AMP SC (00:36)
--- NOTE | 2024-05-13 01:39 | ESCONSULT_ITS ---
RE: RAMILA HICKS : 1940 DATE OF CONSULTATION: 05/12/2024 DATE OF CONSULTATION: 05/12/2024 CONSULTING PHYSICIANS: Hospitalist and Dr. Norm Vigil MD REASON FOR CONSULTATION: Evaluation of elevated PT/INR and swelling of the knee following a fall. Known history of atrial flutter, paroxysmal, on warfarin. HISTORY OF PRESENT ILLNESS: The patient is an 84-year-old male with a past medical history of [id number] hypertension, HFpEF, atrial flutter paroxysmal episodes, on warfarin, hypothyroidism, presented to the hospital because of left knee swelling following a fall 5 days ago. He fell after tripping over a curb. The patient initially had some left- sided pain with discoloration of left knee as well as increased pain. He came to the hospital with these symptoms. He has some significant pain as well. The patient has a history of atrial flutter on warfarin, monitored closely, has been good, but today, the INR ratio is 5.1, PT is elevated at 50, hemoglobin 11.8. The patient's findings initially showed lower extremity __ soft tissue hematoma, _ 10 x 7 x 10 cm size. There were no fractures after the fall. Other laboratory data showed creatinine 1.4, otherwise normal white count. _ The patient appears to be mostly maintaining sinus rhythm. I ordered the patient to have 10 mg vitamin K because of significant active soft tissue bleeding around the knee and lower extremity. ALLERGIES: NONE. MEDICATIONS: The patient has been on warfarin 5 mg daily, simvastatin 10 mg daily, levothyroxine 100 mcg daily, multiple vitamins, vitamin D, albuterol inhaler. PAST MEDICAL HISTORY: Hypertension, HFpEF, paroxysmal atrial flutter. SOCIAL HISTORY: The patient is , lives with his . Does not smoke or drink alcoholic beverages. FAMILY HISTORY: Noncontributory. PHYSICAL EXAMINATION: GENERAL: Well-nourished, pleasant male, alert, awake, and in no acute distress. VITAL SIGNS: Blood pressure is 150/68, pulse rate is 75, respirations 20, temperature normal, oxygen saturation 95%. HEENT: Head is atraumatic. NECK: Supple. No JVD. CHEST: Symmetrical. LUNGS: Decreased breath sounds. No rales or rhonchi. HEART: S1 and S2 regular. ABDOMEN: Thin and soft. EXTREMITIES: Evidence of left knee hematoma, 10 x 10 x 7 cm in size. There is also 1+ edema of both feet, pitting and nonpitting edema as well. GENITOURINARY AND RECTAL: Not performed. DIAGNOSTIC DATA: Electrocardiogram showed sinus rhythm, nonspecific changes. Lab data is reviewed. Hemoglobin is 11.8, PT is 50, INR is 5.1, platelet count 190,000. IMPRESSION/ASSESSMENT: 1. Atrial flutter fibrillation, paroxysmal episode on warfarin with elevated INR. 2. Accidental fall followed by hematoma of the left lower extremity. Significant hematoma. 3. Hypertension. 4. Paroxysmal atrial flutter, now sinus rhythm. 5. Congestive heart failure, preserved ejection fraction, stable. RECOMMENDATIONS: Recommended to continue medical management. We will discontinue warfarin completely. Vitamin K to reverse INR to normal for a while. Since the patient is maintaining sinus rhythm mostly, we will hold off anticoagulation for now. We will probably consider Eliquis later on, but for now, temporarily stopped the anticoagulation completely, probably get orthopedic consultation as well to make sure there are no issues of the compartment syndrome. DT: 23:40:19 TT: 00:59:00 Ref: [id number] - TID: [id number] MTDD
--- NOTE | 2024-05-13 02:33 | PC.NURSE ---
Patient c/o productive cough and is unable to get sleep due to cough, Patient has PRN robitussin syrup 200mg PRN Q6. Called Dr. Zapata regarding patient's concern.
[2024-05-13] MEDS: PROMETHAZINE/DM SYRUP 5 ML DOSE PO (04:09)
[2024-05-13] MEDS: ALBUTEROL INH 8 GM 2 PUFF INH ×2 (04:20→08:29)
[2024-05-13] MEDS: LEVOTHYROXINE SODIUM 100 MCG TABLET PO (05:39)
[2024-05-13] MEDS: GABAPENTIN 100 MG CAPSULE PO ×2 (05:39→14:01)
[2024-05-13 05:58] LABS: Basophils % (Auto) 0 % (0-2.5); Eosinophils # (Auto) 0.1 Thou/mm3 (0.0-0.5); Eosinophils % (Auto) 1 % (0-10); Hematocrit 32.4 % (41.0-53.0); Immature Granulocytes % (Auto) 0 % (0-0); Immature Granulocytes Auto 0.03 Thou/mm3 (0.00-0.00); Lymphocytes % (Auto) 11 % (10-50); Mean Corpuscular Volume 100 fL (80-100); Monocytes # (Auto) 1.1 Thou/mm3 (0.0-0.8); Monocytes % (Auto) 13 % (0-12); Neutrophils # (Auto) 6.3 Thou/mm3 (1.8-7.7); Neutrophils % (Auto) 74 % (37-80); Nucleated Red Blood Cell % 0 /100 WBC (0); Platelet Count 209 Thou/mm3 (140-440); RDW Standard Deviation 48.8 fL (35.1-43.9); Red Blood Count 3.24 Miln/mm3 (4.50-5.90); White Blood Count 8.5 Thou/mm3 (3.8-10.6)
[2024-05-13 06:04] LABS: Glucose Estimated Average 108 mg/dL (80-131); Hemoglobin A1C 5.4 % Hgb (4.8-6.0)
[2024-05-13 06:12] LABS: INR 2.3 (0.9-1.3); Prothrombin Time 24.1 Seconds (9.0-12.2)
[2024-05-13 06:21] LABS: Anion Gap 7 (7-16); BUN/Creatinine Ratio 13 Ratio (12-20); Blood Urea Nitrogen 16 mg/dL (9-23); Calcium 9.1 mg/dL (8.3-10.6); Carbon Dioxide 28.2 mMol/L (20.0-31.0); Cardiac Risk Estimate 1.8 RATIO (4.0-6.7); Chloride 97 mMol/L (98-107); Cholesterol 108 mg/dL (132-200); Creatinine (Component) 1.2 mg/dL (0.6-1.3); Estimated Creatinine Clearance 53.7 mL/min (>60); Glucose 127 mg/dL (74-106); HDL Cholesterol 60 mg/dL (40-60); LDL Cholesterol,Calculated 31 mg/dL (0-130); Magnesium 2.1 mg/dL (1.6-2.6); Osmolality,Calculated 267 (275-295); Potassium 4.2 mMol/L (3.4-5.1); Sodium 132 mMol/L (136-145); Thyroid Stimulating Hormone 0.56 uIU/mL (0.55-4.78); Triglycerides 83 mg/dL (30-150); eGFR > 60 See Note
[2024-05-13] MEDS: INSULIN LISPRO (AdmeLOG) 1 UNIT/0.01 ML UNIT SC (07:35)
[2024-05-13] MEDS: PANTOPRAZOLE INJ 40 MG VIAL IV (08:29)
[2024-05-13] MEDS: BUMETANIDE 0.5 MG TABLET 2 MG PO (08:30)
[2024-05-13] MEDS: AMIODARONE HCL 200 MG TABLET PO (08:30)
--- NOTE | 2024-05-13 10:04 | PC.SS ---
Addendum entered by JUSTIN Schwartz 05/13/24 15:05: Patient will need home health for PT. No preferred. Notified Dr. Landa for HH order. Original Note: Initial assessment: This is 84 year old male admitted for hematoma 2/2 warfarin. Patient appeared alert and oriented. Patient informs he lives alone. Patient confirmed demographic information. Patient's friend, Amanda Vang was identified as the patient's alternate medical surrogate decision maker. Patient informs Amanda is his POA. Patient describes to be independent with ADL's. Patient informs at home he has access to a cane and walker to assist with ambulation if necessary. Patient's PCP is Dr. Jose Mendoza. The discharge plan was discussed, and the patient would like to return home once medically cleared. Patient's friend, Amanda to assist with transportation home. No needs identified at this time. director of therapy services to remain available to address further concerns. D/c plan: home Next of kin: friend, Amanda Vang
[2024-05-13] MEDS: VIT B12/Vit C/FA (Nephrovite) TABLET 1 TAB PO (10:24)
[2024-05-13 10:34] LABS: INR 1.7 (0.9-1.3); Prothrombin Time 18.1 Seconds (9.0-12.2)
--- NOTE | 2024-05-13 11:51 | XR_ITS ---
Examination: Duplex scan of the lower extremity, unilateral left complete Date and time of exam: May 13, 2024 1242 hours INDICATIONS: Patient fell 3 days ago with injury of the lower leg, persistent lower leg pain Technique: Duplex scan of the extremity veins using B-mode/grayscale imaging and Doppler spectral analysis and color flow Attention is directed to internal echogenicity, compression and augmentation involving these veins, color flow assessment, spectral analysis Findings: Major deep venous structures in the extremity demonstrate normal course and caliber. There is no evidence of deep vein thrombosis. Normal color flow and spectral analysis Impression: Negative for DVT..
--- NOTE | 2024-05-13 12:58 | PD.RESPRO ---
Documentation for date of: 05/13/24 Exam Vital Signs Temp Pulse Resp BP Pulse Ox O2 Del Method 99.4 F 75 18 132/60 H 95 Room Air 05/13/24 11:56 05/13/24 11:56 05/13/24 11:56 05/13/24 11:56 05/13/24 11:56 05/13/24 11:56 Objective Labs 05/13/24 05:15 05/13/24 05:15 Labs: Laboratory Results - last 24 hr 05/12/24 05/12/24 05/12/24 15:11 17:40 21:20 WBC RBC Hgb Hct MCV MCH MCHC RDW Std Deviation Plt Count Neut % (Auto) Lymph % (Auto) [place] % (Auto) Eos % (Auto) Baso % (Auto) Neut # (Auto) Lymph # (Auto) [place] # (Auto) Eos # (Auto) Baso # (Auto) Immature Gran # (Auto) Absolute Nucleated RBC Immature Gran % Nucleated RBC % PT 38.6 H* D INR 3.9 H Sodium Potassium Chloride Carbon Dioxide Anion Gap BUN Creatinine Estim Creat Clear Calc eGFR BUN/Creatinine Ratio Glucose Estimated Ave Glu mg/dL Hemoglobin A1c Calculated Osmolality Calcium Magnesium Troponin I < 0.020 < 0.020 B-Natriuretic Peptide < 20 Triglycerides Cholesterol LDL Cholesterol, Calc HDL Cholesterol Cholesterol/HDL Ratio TSH 05/12/24 05/13/24 05/13/24 22:55 05:15 09:48 WBC 8.5 RBC 3.24 L Hgb 11.0 L Hct 32.4 L MCV 100 MCH 34.0 MCHC 34.0 RDW Std Deviation 48.8 H Plt Count 209 Neut % (Auto) 74 Lymph % (Auto) 11 [place] % (Auto) 13 H Eos % (Auto) 1 Baso % (Auto) 0 Neut # (Auto) 6.3 Lymph # (Auto) 1.0 [place] # (Auto) 1.1 H Eos # (Auto) 0.1 Baso # (Auto) 0.0 Immature Gran # (Auto) 0.03 H Absolute Nucleated RBC 0.00 Immature Gran % 0 Nucleated RBC % 0 PT 32.9 H* D 24.1 H D 18.1 H D INR 3.3 H 2.3 H 1.7 H Sodium 132 L Potassium 4.2 Chloride 97 L Carbon Dioxide 28.2 Anion Gap 7 BUN 16 Creatinine 1.2 Estim Creat Clear Calc 53.7 L eGFR > 60 BUN/Creatinine Ratio [address] Glu mg/dL 108 Hemoglobin A1c 5.4 Calculated Osmolality 267 L Calcium 9.1 Magnesium 2.1 Troponin I B-Natriuretic Peptide Triglycerides 83 Cholesterol 108 L LDL Cholesterol, Calc 31 HDL Cholesterol 60 Cholesterol/HDL Ratio 1.8 L TSH 0.56 Quality Measures Quality Measures none Assessment & Plan Assessment Current Active Medications: Generic Name Dose Route Start Last Admin Trade Name Freq PRN Reason Stop Dose Admin Acetaminophen 650 mg 05/12/24 13:14 Acetaminophen 325 Mg Tablet PO 06/11/24 13:13 Q6H PRN Fever >100.1 Hydrocodone Bitart/Acetaminophen 1 tab 05/12/24 13:14 Hydrocodone/Apap 10/325 Tab PO 05/17/24 13:13 Q4H PRN Pain Scale 4-10 Albuterol 2 puff 05/12/24 14:55 05/13/24 08:29 Albuterol Inh 8 Gm INH 06/11/24 14:54 2 puff Q2H PRN Administration SHORTNESS OF BREATH OR WHEEZE Amiodarone HCl 200 mg 05/12/24 13:30 05/13/24 08:30 Amiodarone Hcl 200 Mg Tablet PO 06/11/24 13:29 200 mg DAILY JUAN Administration Atorvastatin Calcium 40 mg 05/12/24 21:00 05/12/24 20:53 Atorvastatin Calcium 20 Mg Tablet PO 06/11/24 20:59 40 mg HS JUAN Administration Bumetanide 2 mg 05/13/24 09:00 05/13/24 08:30 Bumetanide 0.5 Mg Tablet PO 06/12/24 08:59 2 mg DAILY JUAN Administration Dextrose 50 ml 05/12/24 13:22 Dextrose 50%-Water Inj 50 Ml Syringe IV 06/11/24 13:21 Q15MIN PRN BG <50 OR BG <70 & pt unresponsive Gabapentin 100 mg 05/12/24 22:00 05/13/24 05:39 Gabapentin 100 Mg Capsule PO 06/11/24 21:59 100 mg TID JUAN Administration Glucagon 1 mg 05/12/24 13:22 Glucagon Inj 1 Mg Vial IM Q15MIN PRN BG <70, and no IV access Hydralazine HCl 10 mg 05/12/24 13:29 Hydralazine Inj 20 Mg/Ml Vial IV 06/11/24 13:28 X1 PRN SBP >165 Insulin Human Lispro 0 unit 05/12/24 17:00 05/13/24 07:35 Insulin Lispro (Admelog) 1 Unit/0.01 Ml Unit SC 06/11/24 16:59 1 unit ACHS JUAN Administration Protocol Levothyroxine Sodium 100 mcg 05/13/24 06:00 05/13/24 05:39 Levothyroxine Sodium 100 Mcg Tablet PO 06/12/24 05:59 100 mcg ACBR JUAN Administration Ondansetron HCl 4 mg 05/12/24 13:14 Ondansetron Inj 2 Mg/Ml Inj 2 Ml IV 06/11/24 13:13 Q6H PRN NAUSEA OR VOMITING Protocol Pantoprazole Sodium 40 mg 05/12/24 13:20 05/13/24 08:29 Pantoprazole Inj 40 Mg Vial IV 06/11/24 13:19 40 mg QDAY JUAN Administration Promethazine HCl/Dextromethorphan 5 ml 05/13/24 02:40 05/13/24 04:09 Promethazine/Dm Syrup 5 Ml Dose PO 06/12/24 02:39 5 ml Q6HR PRN Administration COUGH Protocol Spironolactone 25 mg 05/13/24 09:00 Spironolactone 25 Mg Tablet PO 06/12/24 08:59 DAILY JUAN Vitamin B Complex/Vit C/Folic Acid 1 tab 05/13/24 10:00 05/13/24 10:24 Vit B12/Vit C/Fa (Nephrovite) Tablet PO 06/12/24 09:59 1 tab QDAY JUAN Administration
--- NOTE | 2024-05-13 14:32 | ESDS_ITS ---
<Statement entered by Mika Cohen DO - 05/13/24 18:19> Senior attestation: Patient was examined and case was reviewed with team including attending physician. Note reviewed, I agree with most of its contents and agree with the patient's care. Mika Cohen DO PGY-3 <Statement entered by Zoran Landa MD - 05/13/24 17:35> Patient was examined with the team including attending physician. Note reviewed, I agree with the discharge plan as documented. - Zoran Landa M.D. PGY2 Planned Discharge Date 05/13/24 DS: Providers Provider Date of admission: 05/12/24 13:09 Primary care physician: Jose Mendoza MD Admitting Provider: Norm Vigil MD Attending Provider on Admission: Norm Vigil MD Consults: 05/12/24 13:15 Consult to Cardiology Stat Comment: INR 5.1 on Warfarin, hematoma following fall Consulting Provider: Juliane Walsh 05/12/24 13:20 Referral Physical Therapy Routine Comment: Physician Instructions: 05/13/24 05:24 Referral Wound Care Routine Comment: Attending Provider on DC: Mukul Quevedo MD Discharging Provider: Mukul Quevedo MD DS: Diagnosis Problem List Completed Was Problem List Reviewed/Reconciled?: Yes Hospital Course Hospital Course Hospital course: 83-year-old male with past medical history of atrial flutter on warfarin, hype rtension, hyperlipidemia, and hypothyroidism was admitted to the hospital on 05/12/2024 due to expanding hematoma of the left knee secondary to supratherapeutic INR at 5.1. In the ED patient presented with swelling of his left lower extremity after fall in which she tripped and landed on his left knee. Initial labs were relevant for microcytic anemia, supratherapeutic INR at 5.1, mild hyponatremia, hypochloremia, and JED. Initial imaging included knee x-ray which did not show any fractures, right tibia/fibula x-ray which did not show any fractures, lower extremity CT which showed soft tissue hematoma laterally to the proximal tibia and fibula measuring 10 x 7 x 10 cm, and chest x-ray which showed some early pneumonia of the left base. Cardiology was consulted due to patient being on warfarin and having supratherapeutic INR, they recommended to give patient vitamin K (total of 11 mg) in order to reverse INR back to normal and to discontinue warfarin completely. On day of discharge patient's INR went down to 1.7 and as per cardiology patient could be discharged home with no further anticoagulation until he is reevaluated as an outpatient at the rehabilitation team lead office. Patient also received a venous Doppler of the left lower extremity which came back negative for any any DVT. Hemoglobin on the day of discharge was still stable at 11 and JED had resolved with creatinine of 1.2. At time of discharge patient was stable enough to be discharged home with instructions to follow-up with primary care physician and his rehabilitation team lead in 1 week. Discharge plan: We have discontinued your Coumadin, as per Cardiology recommendations We have increased your Bumex from 0.5 mg to 2 mg once every day. Please continue all other prescribed medications as indicated. Please follow-up with your rehabilitation team lead in 1 week to follow-up on anticoagulation therapy and INR. Please follow-up with primary care physician in 1 week after discharge. Please return to the ED if symptoms worsen including increased pain, bleeding, or swelling. Problem list: #Left lower extremity hematoma #Supratherapeutic INR #Atrial flutter #HFpEF (EF 50 to 55% on 12/2023) #Hypertension #Hyperlipidemia #Hypothyroidism Case disclosed with Attending Dr. Vigil and My senior Dr. Landa PGY2 [address] Dr[address] Cohen PGY3. Mukul Quevedo PGY1 Status at Discharge Overall status at discharge: patient is progressing back to baseline Time Spent with Patient Time attestation: Total time spent providing and/or coordinating discharge services: >35 min Exam Vital Signs Temp Pulse Resp BP Pulse Ox O2 Del Method 99.4 F 75 18 132/60 H 95 Room Air 05/13/24 11:56 05/13/24 11:56 05/13/24 11:56 05/13/24 11:56 05/13/24 11:56 05/13/24 11:56 Narrative Exam General: A/O x3, no acute distress, well-nourished, well-developed Eyes: PERRL, EOMI. Anicteric, vision grossly intact. Ears: No ear pain, no ear discharge, Hearing grossly intact. Nose: No nasal discharge. Mouth/Throat: Moist mucous membranes, no redness, no lesions. Neck: Neck supple, non-tender, no cervical lymphadenopathy. Lungs: Clear SUMIT to auscultation and percussion, No accessory muscle use. Cardio: Normal S1/S2, regular rhythm, no murmurs, no JVD Abdomen: Soft, non-tender, no palpable masses, peristalsis present, no guarding or rebound. Extremities: Symmetrical, no significant deformities, SUMIT peripheral edema 1+ on R LE and 2+ on L LE, non-tender, peripheral pulses presents, L hematoma in lateral aspect at knee level. Skin: No rashes, no lesions, warm to touch. Surgical scar from prior knee surgery Neuro: No focal neurological deficits. motor and sensory intact. Psych: Cooperative, appropriate mood and effect. Discharge Plan Plan Patient Disposition: Home w/HOME HEALTH Disposition Comment: Stable for admit Patient condition on transfer: Stable Care Plan Goals: We have discontinued your Coumadin, as per Cardiology recommendations We have increased your Bumex from 0.5 mg to 2 mg once every day. Please continue all other prescribed medications as indicated. Please follow-up with your rehabilitation team lead in 1 week to follow-up on anticoagulation therapy and INR. Please follow-up with primary care physician in 1 week after discharge. Please return to the ED if symptoms worsen including increased pain, bleeding, or swelling. Prescriptions/Referrals Prescriptions/Med Rec: New bumetanide 2 mg tablet 2 mg PO QDAY 30 Days Qty: 30 0RF Continued omeprazole [Prilosec] 20 MG capsule,delayed release(DR/EC) 20 mg PO QDAY PRN (Reason: GERD) Qty: 0 Patient Comments: TO SUPPRESS GASTRIC ACID SECRETIONS albuterol sulfate [ProAir HFA] 8.5 GM HFA aerosol inhaler 1 puff Inhalation DAILY Qty: 0 cholecalciferol (vitamin D3) [Vitamin D3] 1,000 UNIT tablet 2,000 unit PO QDAY Qty: 0 gabapentin 100 MG capsule 100 mg PO QDAY Qty: 0 Patient Comments: Pt takes 1 tab in am,2 tabs at HS Multivits,Ca,Min/Iron/FA/Lycop (Centrum Men's Tablet) 1 EACH tablet 1 tab PO QDAY Qty: 0 levothyroxine tablet 100 mcg PO QDAY simvastatin 10 mg tablet 10 mg PO QPM gabapentin 100 mg capsule 200 mg PO QPM Patient Comments: TAKE 1 CAPSULE BY MOUTH 3 TIMES A DAY amiodarone 200 mg tablet 200 mg PO QDAY Patient Comments: take 1 tablet by mouth once daily spironolactone 25 mg tablet 25 mg PO QPM Patient Comments: TAKE 1 TABLET BY MOUTH EVERY DAY FOR 90 DAYS Discontinued warfarin 5 mg Tablet 5 mg PO DAILY bumetanide 0.5 mg tablet 0.5 mg PO QDAY Patient Comments: TAKE 1 TABLET BY MOUTH EVERY DAY No Action doxycycline hyclate 100 MG tablet 100 mg PO BID Qty: 60 1RF Patient Comments: Continuous therapy for bilateral knee infection prevention Referrals: Jose Mendoza MD [Primary Care Provider] - Patient/Caregiver Discharge Instructions Meds to Beds: Yes Discharge Activity: as per physical therapy and resume usual activities Education Materials: AFL/Afib, Exercise for a Healthier Heart, First Aid: Bleeding Print Language: Bengali Stand Alone Forms: [facility] Award Info., Patient Portal Info Letter, Work/Release Restrictions Discharge Order Discharge Orders: Discharge (Routine); Ordered 05/13/24 Ordered By: Zoran Landa Quality Discharge Quality Measures none (supratherapuetic INR, no anticoagulation (contraindicated)) MD Attestestation MD Attestation I reviewed labs, imaging, EKG, home medications and prior available records. Face to face evaluation was performed by me. I have personally examined the patient and discussed assessment and plan with the IM team. I reviewed the resident note and agree with the plan with exceptions as below. Please see my separate addendum for the same date of service
--- NOTE | 2024-05-13 14:41 | PD.ADDDSCHGE ---
Addendum Discharge Addendum Date of report being addended: 05/13/24 Narrative: I reviewed labs, imaging, EKG, home medications and prior available records. Face to face evaluation was performed by me. I have personally examined the patient and discussed assessment and plan with the IM team. I reviewed the resident note and agree with the plan with exceptions as below. Ground-level fall Left lower extremity hematoma Atrial flutter on warfarin, controlled ventricular rate Supratherapeutic INR Stop warfarin Monitor for bleeding and expansion of hematoma Monitor H&H May start Eliquis later however follow-up with cardiology as outpatient first Time spent is 40 minutes. More than 50% of the time was spent on patient education and coordination of care.
--- NOTE | 2024-05-13 14:51 | ESPR_ITS ---
<Statement entered by Juliane Walsh MD - 05/15/24 19:14> I personally evaluated patient and patient appears to have been back in normal sinus rhythm hence we will stop anticoagulation patient did have significant hematoma of the left lower extremity once it resolves completely I will restart him on Coumadin patient is recommend to follow-up with me as an outpatient Documentation for date of: 05/13/24 Subjective Subjective Interval history: 84-year-old male patient with significant medical history of [id number] hypertension, HFpEF, atrial flutter paroxysmal episodes, on warfarin and hypothyroidism presented to the hospital because of left knee swelling following a fall 5 days ago. He fell after tripping over a curb. The patient initially had some left-sided pain with discoloration of left knee as well as increased pain. He came to the hospital with these symptoms. He has some significant pain as well. The patient has a history of atrial flutter on warfarin, monitored closely, has been good, but today, the INR ratio is 5.1, PT is elevated at 50, hemoglobin 11.8. The patient's findings initially showed lower extremity soft tissue hematoma 10 x 7 x 10 cm in size. There were no fractures after the fall. Other laboratory data showed creatinine 1.4, otherwise normal white count. Patient appears to be mostly maintaining sinus rhythm. Patient was administered Vitamin K and warfarin was withheld. 05/13:24: No significant overnight events. Patient remains at sinus rhythm. INR at therapeutic baseline of 1.7. We recommend to withhold Warfarin for now. Patient will be re-evaluated at cardiology clinic for further recommendations regarding paroxysmal Afib. Exam Vital Signs Temp Pulse Resp BP Pulse Ox O2 Del Method 99.4 F 75 18 132/60 H 95 Room Air 05/13/24 11:56 05/13/24 11:56 05/13/24 11:56 05/13/24 11:56 05/13/24 11:56 05/13/24 11:56 Narrative Exam Constitutional: well-developed, well-nourished, in no acute distress, lying in bed HEENT: NCAT, EOMI, reactive round pupils b/l, patent nares b/l, moist mucous membranes Lung: CTAB, no wheezing, no rhonchi Heart: Regular S1S2, no murmurs, gallops, or rubs Abdomen: Soft, non-distended, non-tender, bowel sounds present throughout Extremities: No cyanosis, no clubbing, +1 pitting edema of right LE, left foot non-pitting edema, lateral aspect of left knee with [id number] cm hematoma mild tenderness on palpation, LE pulses present b/l Neurologic: No focal sensory or motor deficits noted, AOx3, appropriate affect Objective Labs 05/13/24 05:15 05/13/24 05:15 Labs: Laboratory Results - last 24 hr 05/12/24 05/12/24 05/12/24 15:11 17:40 21:20 WBC RBC Hgb Hct MCV MCH MCHC RDW Std Deviation Plt Count Neut % (Auto) Lymph % (Auto) Sunflower % (Auto) Eos % (Auto) Baso % (Auto) Neut # (Auto) Lymph # (Auto) Sunflower # (Auto) Eos # (Auto) Baso # (Auto) Immature Gran # (Auto) Absolute Nucleated RBC Immature Gran % Nucleated RBC % PT 38.6 H* D INR 3.9 H Sodium Potassium Chloride Carbon Dioxide Anion Gap BUN Creatinine Estim Creat Clear Calc eGFR BUN/Creatinine Ratio Glucose Estimated Ave Glu mg/dL Hemoglobin A1c Calculated Osmolality Calcium Magnesium Troponin I < 0.020 < 0.020 B-Natriuretic Peptide < 20 Triglycerides Cholesterol LDL Cholesterol, Calc HDL Cholesterol Cholesterol/HDL Ratio TSH 05/12/24 05/13/24 05/13/24 22:55 05:15 09:48 WBC 8.5 RBC 3.24 L Hgb 11.0 L Hct 32.4 L MCV 100 MCH 34.0 MCHC 34.0 RDW Std Deviation 48.8 H Plt Count 209 Neut % (Auto) 74 Lymph % (Auto) 11 Sunflower % (Auto) 13 H Eos % (Auto) 1 Baso % (Auto) 0 Neut # (Auto) 6.3 Lymph # (Auto) 1.0 Sunflower # (Auto) 1.1 H Eos # (Auto) 0.1 Baso # (Auto) 0.0 Immature Gran # (Auto) 0.03 H Absolute Nucleated RBC 0.00 Immature Gran % 0 Nucleated RBC % 0 PT 32.9 H* D 24.1 H D 18.1 H D INR 3.3 H 2.3 H 1.7 H Sodium 132 L Potassium 4.2 Chloride 97 L Carbon Dioxide 28.2 Anion Gap 7 BUN 16 Creatinine 1.2 Estim Creat Clear Calc 53.7 L eGFR > 60 BUN/Creatinine Ratio [address] Glu mg/dL 108 Hemoglobin A1c 5.4 Calculated Osmolality 267 L Calcium 9.1 Magnesium 2.1 Troponin I B-Natriuretic Peptide Triglycerides 83 Cholesterol 108 L LDL Cholesterol, Calc 31 HDL Cholesterol 60 Cholesterol/HDL Ratio 1.8 L TSH 0.56 Quality Measures Quality Measures none Advance care planning discussed with:: other Assessment & Plan Assessment Current Active Medications: Generic Name Dose Route Start Last Admin Trade Name Freq PRN Reason Stop Dose Admin Acetaminophen 650 mg 05/12/24 13:14 Acetaminophen 325 Mg Tablet PO 06/11/24 13:13 Q6H PRN Fever >100.1 Hydrocodone Bitart/Acetaminophen 1 tab 05/12/24 13:14 Hydrocodone/Apap 10/325 Tab PO 05/17/24 13:13 Q4H PRN Pain Scale 4-10 Albuterol 2 puff 05/12/24 14:55 05/13/24 08:29 Albuterol Inh 8 Gm INH 06/11/24 14:54 2 puff Q2H PRN Administration SHORTNESS OF BREATH OR WHEEZE Amiodarone HCl 200 mg 05/12/24 13:30 05/13/24 08:30 Amiodarone Hcl 200 Mg Tablet PO 06/11/24 13:29 200 mg DAILY JUAN Administration Atorvastatin Calcium 40 mg 05/12/24 21:00 05/12/24 20:53 Atorvastatin Calcium 20 Mg Tablet PO 06/11/24 20:59 40 mg HS JUAN Administration Bumetanide 2 mg 05/13/24 09:00 05/13/24 08:30 Bumetanide 0.5 Mg Tablet PO 06/12/24 08:59 2 mg DAILY JUAN Administration Dextrose 50 ml 05/12/24 13:22 Dextrose 50%-Water Inj 50 Ml Syringe IV 06/11/24 13:21 Q15MIN PRN BG <50 OR BG <70 & pt unresponsive Gabapentin 100 mg 05/12/24 22:00 05/13/24 14:01 Gabapentin 100 Mg Capsule PO 06/11/24 21:59 100 mg TID JUAN Administration Glucagon 1 mg 05/12/24 13:22 Glucagon Inj 1 Mg Vial IM Q15MIN PRN BG <70, and no IV access Hydralazine HCl 10 mg 05/12/24 13:29 Hydralazine Inj 20 Mg/Ml Vial IV 06/11/24 13:28 X1 PRN SBP >165 Insulin Human Lispro 0 unit 05/12/24 17:00 05/13/24 11:55 Insulin Lispro (Admelog) 1 Unit/0.01 Ml Unit SC 06/11/24 16:59 Not Given ACHS JUAN Protocol Levothyroxine Sodium 100 mcg 05/13/24 06:00 05/13/24 05:39 Levothyroxine Sodium 100 Mcg Tablet PO 06/12/24 05:59 100 mcg ACBR JUAN Administration Ondansetron HCl 4 mg 05/12/24 13:14 Ondansetron Inj 2 Mg/Ml Inj 2 Ml IV 06/11/24 13:13 Q6H PRN NAUSEA OR VOMITING Protocol Pantoprazole Sodium 40 mg 05/12/24 13:20 05/13/24 08:29 Pantoprazole Inj 40 Mg Vial IV 06/11/24 13:19 40 mg QDAY JUAN Administration Promethazine HCl/Dextromethorphan 5 ml 05/13/24 02:40 05/13/24 04:09 Promethazine/Dm Syrup 5 Ml Dose PO 06/12/24 02:39 5 ml Q6HR PRN Administration COUGH Protocol Spironolactone 25 mg 05/13/24 09:00 Spironolactone 25 Mg Tablet PO 06/12/24 08:59 DAILY [facility] Vitamin B Complex/Vit C/Folic Acid 1 tab 05/13/24 10:00 05/13/24 10:24 Vit B12/Vit C/Fa (Nephrovite) Tablet PO 06/12/24 09:59 1 tab QDAY JUAN Administration Plan 83-year-old male with significant medical history for paroxysmal atrial flutter (on warfarin), hypothyroidism, HLD and HTN presenting to ED for left knee hematoma after having mechanical fall. Labs was significant for supratherapeutic INR 5.1. #Paroxysmal atrial flutter, stable #Supratherapeutic INR 5.1, resolved #Left knee hematoma Plan: ? Patient received vitamin K injection in ED ? Hold off warfarin ? Continue amiodarone 200 mg ? Continue wound care ? Echocardiogram pending #HFpEF #HTN Plan: ? Continue Bumex 0.5 mg Qday ? Spironolactone 25 mg Qday #Hyperlipidemia Plan: ? Continue simvistatin 40 mg Qday This patient care was discussed with my attending Dr. Nico Rodriguez MD PGY-2 Disclaimer: Minor errors in munitions handler may be present since this note was dictated by speech recognition software.
--- NOTE | 2024-05-13 17:45 | PC.CM ---
Addendum entered by Marcie Dee RN 05/13/24 18:39: [facility] accepted the pt. Booked [facility]. Pending start of care date. Original Note: No preference of HH agency per SS notes. HH referral sent on [facility]. Awaiting responses. Pending Start of care date.
--- NOTE | 2024-05-15 09:02 | PC.CM ---
[facility] accepted patient. Start of care date set for 05/18.
== END 2024-05-13 16:03 | disposition home health service (06) ==
LOC: SERX 13:01 → SERHOLD 13:24 → S3SX 16:58
PROVIDERS: Nurse Practitioner Family; Student in an Organized Health Care Education/Training Program; Admitting Provider Student in an Organized Health Care Education/Training Program; Emergency Provider Emergency Medicine; PCP Specialist; Visit Provider Student in an Organized Health Care Education/Training Program
DX: S80.02XA Contusion of left knee, initial encounter (principal); T45.515A Adverse effect of anticoagulants, initial encounter; R79.1 Abnormal coagulation profile; N17.9 Acute kidney failure, unspecified; D50.9 Iron deficiency anemia, unspecified; E03.9 Hypothyroidism, unspecified; E11.9 Type 2 diabetes mellitus without complications; E66.9 Obesity, unspecified; E78.00 Pure hypercholesterolemia, unspecified; E87.1 Hypo-osmolality and hyponatremia; E87.8 Other disorders of electrolyte and fluid balance, not elsewhere classified; I11.0 Hypertensive heart disease with heart failure; I48.0 Paroxysmal atrial fibrillation; I48.92 Unspecified atrial flutter; I50.32 Chronic diastolic (congestive) heart failure; J45.909 Unspecified asthma, uncomplicated
CPT/HCPCS: 36415; 71045; 73562; 73590; 73701; 80048; 80053; 80061; 83036; 83735; 83880; 84443; 84484; 85025; 85610; 87811; 90471; 90714; 93005; 93971; 94640; 94664; 96372; 96374; 97162; 99285; A4649; G0378; J1815; J2470; J3420; J3430; Q9967; A9270

== ENCOUNTER → 2024-05-23 | Outpatient (CLI) | payer MEDICARE, SELFPAY ==
[2024-05-23 11:38] LABS: Albumin, Serum 4.4 gm/dL (3.4-4.8); Anion Gap 8 (7-16); BUN/Creatinine Ratio 12 Ratio (12-20); Blood Urea Nitrogen 18 mg/dL (9-23); Calcium 9.7 mg/dL (8.3-10.6); Calcium (Corrected) 9.7 mg/dL (8.5-10.1); Carbon Dioxide 33.6 mMol/L (20.0-31.0); Chloride 95 mMol/L (98-107); Creatinine (Component) 1.5 mg/dL (0.6-1.3); Glucose 99 mg/dL (74-106); Osmolality,Calculated 275 (275-295); Phosphorous 3.3 mg/dL (2.4-5.1); Potassium 3.7 mMol/L (3.4-5.1); Sodium 137 mMol/L (136-145); eGFR 46 See Note
== END | disposition home or self-care (01) ==
LOC: COPL 10:19
PROVIDERS: PCP Specialist; Referring Provider Specialist; Visit Provider Specialist
DX: I50.22 Chronic systolic (congestive) heart failure (principal)
CPT/HCPCS: 36415; 80069

== ENCOUNTER → 2024-05-31 | Outpatient (CLI) | payer MEDICARE, SELFPAY | END | disposition home or self-care (01) | PROVIDERS: PCP Internal Medicine Cardiovascular Disease; Referring Provider Internal Medicine Cardiovascular Disease; Visit Provider Surgery | DX: I96 Gangrene, not elsewhere classified (principal); S80.12XA Contusion of left lower leg, initial encounter; X58.XXXA Exposure to other specified factors, initial encounter; R60.0 Localized edema; I49.9 Cardiac arrhythmia, unspecified; J45.909 Unspecified asthma, uncomplicated | CPT/HCPCS: 99203; G0463 ==

== ENCOUNTER → 2024-06-07 | Outpatient (CLI) | payer MEDICARE, SELFPAY | END | disposition home or self-care (01) | LOC: SWHD 10:24 | PROVIDERS: PCP Specialist; Referring Provider Specialist; Visit Provider Student in an Organized Health Care Education/Training Program | DX: I96 Gangrene, not elsewhere classified (principal); S80.12XA Contusion of left lower leg, initial encounter; X58.XXXA Exposure to other specified factors, initial encounter; R60.0 Localized edema; I49.9 Cardiac arrhythmia, unspecified; J45.909 Unspecified asthma, uncomplicated | CPT/HCPCS: 99213; A9270; G0463 ==

== ENCOUNTER → 2024-06-13 | Outpatient (CLI) | payer MEDICARE, SELFPAY ==
[2024-06-13 11:26] LABS: Basophils % (Auto) 1 % (0-2.5); Eosinophils # (Auto) 0.2 Thou/mm3 (0.0-0.5); Eosinophils % (Auto) 3 % (0-10); Hematocrit 41.2 % (41.0-53.0); Hemoglobin 13.5 g/dL (13.5-16.0); Immature Granulocytes % (Auto) 0 % (0-0); Immature Granulocytes Auto 0.02 Thou/mm3 (0.00-0.00); Lymphocytes # (Auto) 1.5 Thou/mm3 (1.0-4.8); Lymphocytes % (Auto) 23 % (10-50); Mean Corpuscular HGB Conc 32.8 g/dl (31.0-37.0); Mean Corpuscular Hemoglobin 32.8 pg (25.0-35.0); Mean Corpuscular Volume 100 fL (80-100); Monocytes # (Auto) 0.7 Thou/mm3 (0.0-0.8); Monocytes % (Auto) 11 % (0-12); Neutrophils # (Auto) 3.9 Thou/mm3 (1.8-7.7); Neutrophils % (Auto) 61 % (37-80); Nucleated Red Blood Cell % 0 /100 WBC (0); Platelet Count 235 Thou/mm3 (140-440); RDW Standard Deviation 50.3 fL (35.1-43.9); Red Blood Count 4.11 Miln/mm3 (4.50-5.90); White Blood Count 6.4 Thou/mm3 (3.8-10.6)
[2024-06-13 11:31] LABS: Prothrombin Time 10.9 Seconds (9.0-12.2)
[2024-06-13 11:36] LABS: Glucose Estimated Average 103 mg/dL (80-131); Hemoglobin A1C 5.2 % Hgb (4.8-6.0)
[2024-06-13 11:48] LABS: Creatinine MALB Rnd Ur 14 mg/dL (30-125); Microalbumin, Random Urine < 3 mg/L (0-300)
[2024-06-13 12:16] LABS: Alanine Aminotransferase 20 U/L (10-49); Albumin, Serum 4.3 gm/dL (3.4-4.8); Albumin/Globulin Ratio 1.8 (1.2-2.2); Alkaline Phosphatase 81 U/L (46-116); Anion Gap 5 (7-16); Aspartate Amino Transferase 21 U/L (0-34); BUN/Creatinine Ratio 14 Ratio (12-20); Bilirubin,Total 0.8 mg/dL (0.3-1.2); Blood Urea Nitrogen 19 mg/dL (9-23); Calcium 10.4 mg/dL (8.3-10.6); Calcium (Corrected) 10.4 mg/dL (8.5-10.1); Carbon Dioxide 34.1 mMol/L (20.0-31.0); Chloride 100 mMol/L (98-107); Creatinine (Component) 1.4 mg/dL (0.6-1.3); Globulin 2.4 gm/dL (2.3-3.5); Glucose 70 mg/dL (74-106); Osmolality,Calculated 277 (275-295); Potassium 4.6 mMol/L (3.4-5.1); Sodium 139 mMol/L (136-145); Total Protein 6.7 gm/dL (5.7-8.2); eGFR 50 See Note
[2024-06-13 12:33] LABS: Cardiac Risk Estimate 2.5 RATIO (4.0-6.7); Cholesterol 174 mg/dL (132-200); HDL Cholesterol 69 mg/dL (40-60); LDL Cholesterol,Calculated 54 mg/dL (0-130); Triglycerides 254 mg/dL (30-150)
== END | disposition home or self-care (01) ==
LOC: COPL 10:37
PROVIDERS: PCP Specialist; Referring Provider Specialist; Visit Provider Specialist
DX: E11.40 Type 2 diabetes mellitus with diabetic neuropathy, unspecified (principal); E11.65 Type 2 diabetes mellitus with hyperglycemia; I48.3 Typical atrial flutter; E78.2 Mixed hyperlipidemia
CPT/HCPCS: 36415; 80053; 80061; 82043; 82570; 83036; 85025; 85610

== ENCOUNTER → 2024-06-14 | Outpatient (CLI) | payer MEDICARE, SELFPAY | END | disposition home or self-care (01) | LOC: SWHD 09:56 | PROVIDERS: PCP Specialist; Referring Provider Specialist; Visit Provider Surgery | DX: I96 Gangrene, not elsewhere classified (principal); S80.12XA Contusion of left lower leg, initial encounter; X58.XXXA Exposure to other specified factors, initial encounter; R60.0 Localized edema; I49.9 Cardiac arrhythmia, unspecified; J45.909 Unspecified asthma, uncomplicated | CPT/HCPCS: 99213; G0463 ==

== ENCOUNTER → 2024-06-18 | Outpatient (CLI) | payer MEDICARE, SELFPAY | END | disposition home or self-care (01) | LOC: SWHD 15:03 | PROVIDERS: PCP Specialist; Referring Provider Specialist; Visit Provider Student in an Organized Health Care Education/Training Program | DX: I96 Gangrene, not elsewhere classified (principal); S80.12XA Contusion of left lower leg, initial encounter; X58.XXXA Exposure to other specified factors, initial encounter; R60.0 Localized edema; I49.9 Cardiac arrhythmia, unspecified; J45.909 Unspecified asthma, uncomplicated | CPT/HCPCS: 97597; 97598; A9270 ==

== ENCOUNTER → 2024-06-21 | Outpatient (CLI) | payer MEDICARE, SELFPAY | END | disposition home or self-care (01) | PROVIDERS: PCP Specialist; Referring Provider Specialist; Visit Provider Surgery | DX: I96 Gangrene, not elsewhere classified (principal); S80.12XA Contusion of left lower leg, initial encounter; X58.XXXA Exposure to other specified factors, initial encounter; R60.0 Localized edema; I49.9 Cardiac arrhythmia, unspecified; J45.909 Unspecified asthma, uncomplicated | CPT/HCPCS: 11042 ==

== ENCOUNTER → 2024-06-28 | Outpatient (CLI) | payer MEDICARE, SELFPAY | END | disposition home or self-care (01) | LOC: SWHD 10:13 | PROVIDERS: PCP Specialist; Referring Provider Specialist; Visit Provider Physician Assistant | DX: X58.XXXA Exposure to other specified factors, initial encounter (principal); R60.0 Localized edema; I49.9 Cardiac arrhythmia, unspecified; J45.909 Unspecified asthma, uncomplicated | CPT/HCPCS: 97597; 97598; A9270 ==

== ENCOUNTER → 2024-07-05 | Outpatient (CLI) | payer MEDICARE, SELFPAY | END | disposition home or self-care (01) | LOC: SWHD 10:07 | PROVIDERS: PCP Specialist; Referring Provider Specialist; Visit Provider Surgery | DX: I96 Gangrene, not elsewhere classified (principal); S80.12XA Contusion of left lower leg, initial encounter; X58.XXXA Exposure to other specified factors, initial encounter; R60.0 Localized edema; I49.9 Cardiac arrhythmia, unspecified; J45.909 Unspecified asthma, uncomplicated | CPT/HCPCS: 11042; 11045; A9270 ==

== ENCOUNTER → 2024-07-12 | Outpatient (CLI) | payer MEDICARE, SELFPAY | END | disposition home or self-care (01) | LOC: SWHD 10:00 | PROVIDERS: PCP Specialist; Referring Provider Specialist; Visit Provider Surgery | DX: I96 Gangrene, not elsewhere classified (principal); S80.12XA Contusion of left lower leg, initial encounter; X58.XXXA Exposure to other specified factors, initial encounter; R60.0 Localized edema; I49.9 Cardiac arrhythmia, unspecified; J45.909 Unspecified asthma, uncomplicated | CPT/HCPCS: 11042; 11045; A9270 ==

== ENCOUNTER → 2024-07-19 | Outpatient (CLI) | payer MEDICARE, SELFPAY | END | disposition home or self-care (01) | LOC: SWHD 10:04 | PROVIDERS: PCP Specialist; Referring Provider Specialist; Visit Provider Surgery | DX: I96 Gangrene, not elsewhere classified (principal); S80.12XA Contusion of left lower leg, initial encounter; X58.XXXA Exposure to other specified factors, initial encounter; R60.0 Localized edema; I49.9 Cardiac arrhythmia, unspecified; J45.909 Unspecified asthma, uncomplicated | CPT/HCPCS: 11042; A9270 ==

== ENCOUNTER → 2024-07-26 | Outpatient (CLI) | payer MEDICARE, SELFPAY | END | disposition home or self-care (01) | LOC: SWHD 14:38 | PROVIDERS: PCP Specialist; Referring Provider Specialist; Visit Provider Physician Assistant | DX: I96 Gangrene, not elsewhere classified (principal); S80.12XA Contusion of left lower leg, initial encounter; W19.XXXA Unspecified fall, initial encounter; R60.0 Localized edema; I49.9 Cardiac arrhythmia, unspecified; J45.909 Unspecified asthma, uncomplicated | CPT/HCPCS: 99213; A9270; G0463 ==

== ENCOUNTER → 2024-08-02 | Outpatient (CLI) | payer MEDICARE, SELFPAY | END | disposition home or self-care (01) | LOC: SWHD 10:51 | PROVIDERS: PCP Specialist; Referring Provider Specialist; Visit Provider Student in an Organized Health Care Education/Training Program | DX: I96 Gangrene, not elsewhere classified (principal); S80.12XA Contusion of left lower leg, initial encounter; X58.XXXA Exposure to other specified factors, initial encounter; R60.0 Localized edema; I49.9 Cardiac arrhythmia, unspecified; J45.909 Unspecified asthma, uncomplicated | CPT/HCPCS: 11042; A9270 ==

== ENCOUNTER → 2024-08-09 | Outpatient (CLI) | payer MEDICARE, SELFPAY | END | disposition home or self-care (01) | LOC: SWHD 10:42 | PROVIDERS: PCP Specialist; Referring Provider Specialist; Visit Provider Surgery | DX: I96 Gangrene, not elsewhere classified (principal); S80.12XA Contusion of left lower leg, initial encounter; X58.XXXA Exposure to other specified factors, initial encounter; R60.0 Localized edema; I49.9 Cardiac arrhythmia, unspecified; J45.909 Unspecified asthma, uncomplicated | CPT/HCPCS: 11042; A9270 ==

== ENCOUNTER → 2024-08-12 | Outpatient (CLI) | payer MEDICARE, SELFPAY ==
[2024-08-12 09:08] LABS: Collection Type, Urine Clean Catch; Squamous Epithelial Cell,Urine 0 /hpf (0-5)
[2024-08-12 09:28] LABS: Basophils # (Auto) 0.1 Thou/mm3 (0.0-0.2); Basophils % (Auto) 1 % (0-2.5); Eosinophils # (Auto) 0.2 Thou/mm3 (0.0-0.5); Eosinophils % (Auto) 3 % (0-10); Hematocrit 41.5 % (41.0-53.0); Hemoglobin 13.6 g/dL (13.5-16.0); Immature Granulocytes % (Auto) 0 % (0-0); Immature Granulocytes Auto 0.01 Thou/mm3 (0.00-0.00); Lymphocytes # (Auto) 1.4 Thou/mm3 (1.0-4.8); Lymphocytes % (Auto) 23 % (10-50); Mean Corpuscular HGB Conc 32.8 g/dl (31.0-37.0); Mean Corpuscular Hemoglobin 31.6 pg (25.0-35.0); Mean Corpuscular Volume 97 fL (80-100); Monocytes # (Auto) 0.7 Thou/mm3 (0.0-0.8); Monocytes % (Auto) 12 % (0-12); Neutrophils # (Auto) 3.8 Thou/mm3 (1.8-7.7); Neutrophils % (Auto) 62 % (37-80); Nucleated Red Blood Cell % 0 /100 WBC (0); Platelet Count 231 Thou/mm3 (140-440); RDW Standard Deviation 49.3 fL (35.1-43.9); White Blood Count 6.1 Thou/mm3 (3.8-10.6)
[2024-08-12 09:39] LABS: Parathyroid Hormone Intact 159.1 pg/ml (18.5-88.0)
[2024-08-12 09:39] LABS: Bilirubin,Urine Negative (Negative); Blood,Urine Negative (Negative); Clarity,Urine Clear (Clear/Hazy); Color,Urine Colorless (Lt Yel-Yel); Glucose, Urine Negative (Negative); Ketones,Urine Negative (Negative); Leukocyte Esterase,Urine Negative (Negative); Nitrite,Urine Negative (Negative); Protein,Urine Negative (Neg - Trace); RBC,Urine < 1 /hpf (0-3); Specific Gravity,Urine 1.008 (1.001-1.035); Urobilinogen,Urine Negative mg/dL (0.0-1.0); WBC,Urine < 1 /hpf (0-5)
[2024-08-12 09:41] LABS: Albumin, Serum 4.3 gm/dL (3.4-4.8); Anion Gap 7 (7-16); BUN/Creatinine Ratio 20 Ratio (12-20); Blood Urea Nitrogen 28 mg/dL (9-23); Calcium 9.9 mg/dL (8.3-10.6); Calcium (Corrected) 9.9 mg/dL (8.5-10.1); Carbon Dioxide 33.1 mMol/L (20.0-31.0); Chloride 99 mMol/L (98-107); Creatinine (Component) 1.4 mg/dL (0.6-1.3); Glucose 93 mg/dL (74-106); Osmolality,Calculated 283 (275-295); Phosphorous 3.3 mg/dL (2.4-5.1); Potassium 4.1 mMol/L (3.4-5.1); Sodium 139 mMol/L (136-145); eGFR 50 See Note
[2024-08-12 09:43] LABS: Vitamin D 25 Hydroxy Total 39.5 ng/mL (7.3-40.2)
== END | disposition home or self-care (01) ==
LOC: COPL 08:21
PROVIDERS: PCP Specialist; Referring Provider Specialist; Visit Provider Internal Medicine
DX: I12.9 Hypertensive chronic kidney disease with stage 1 through stage 4 chronic kidney disease, or unspecified chronic kidney disease (principal); E55.9 Vitamin D deficiency, unspecified; E78.5 Hyperlipidemia, unspecified; N18.30 Chronic kidney disease, stage 3 unspecified
CPT/HCPCS: 36415; 80069; 81001; 82306; 83970; 85025

== ENCOUNTER → 2024-08-16 | Outpatient (CLI) | payer MEDICARE, SELFPAY | END | disposition home or self-care (01) | LOC: SWHD 12:33 | PROVIDERS: PCP Specialist; Referring Provider Specialist; Visit Provider Surgery | DX: I96 Gangrene, not elsewhere classified (principal); S80.12XA Contusion of left lower leg, initial encounter; X58.XXXA Exposure to other specified factors, initial encounter; R60.0 Localized edema; I49.9 Cardiac arrhythmia, unspecified; J45.909 Unspecified asthma, uncomplicated | CPT/HCPCS: 99213; A9270; G0463 ==

== ENCOUNTER → 2024-08-19 | Outpatient (CLI) | payer MEDICARE, SELFPAY ==
--- NOTE | 2024-08-19 13:30 | XR_ITS ---
Examination: Retroperitoneal ultrasound, complete Technique: Multiple high resolution grayscale images of the retroperitoneum obtained, including kidneys and bladder. Exam date and time:August 19, 2024 1319 hours INDICATIONS: Acute renal insufficiency on laboratory examination today FINDINGS: Right kidney 12.2 cm in the cortex 1.4 cm 6.6 cm lower pole cyst 3.1 cm midpole cyst 2.8 cm upper pole cyst Left kidney 12.5 cm cortex 1.5 cm 6.7 cm lower pole cyst 3.0 cm midpole cyst 2.5 cm upper pole cyst Moderate bilateral renal cortical scar formation No hydronephrosis No bladder mass or bladder calculi Bladder prevoid volume 134 cc postvoid volume 106 cc No prostatomegaly no prostate nodules IMPRESSION: Multiple bilateral benign renal cyst Moderate bilateral renal parenchymal scar formation
== END | disposition home or self-care (01) ==
PROVIDERS: PCP Internal Medicine; Referring Provider Internal Medicine; Visit Provider Internal Medicine
DX: N28.1 Cyst of kidney, acquired (principal); N28.89 Other specified disorders of kidney and ureter
CPT/HCPCS: 76770

== ENCOUNTER → 2024-08-23 | Outpatient (CLI) | payer MEDICARE, SELFPAY | END | disposition home or self-care (01) | LOC: SWHD 13:00 | PROVIDERS: PCP Specialist; Referring Provider Specialist; Visit Provider Surgery | DX: I96 Gangrene, not elsewhere classified (principal); S80.12XA Contusion of left lower leg, initial encounter; X58.XXXA Exposure to other specified factors, initial encounter; R60.0 Localized edema; I49.9 Cardiac arrhythmia, unspecified; J45.909 Unspecified asthma, uncomplicated | CPT/HCPCS: 11042; A9270 ==

== ENCOUNTER → 2024-08-30 | Outpatient (CLI) | payer MEDICARE, SELFPAY | END | disposition home or self-care (01) | LOC: SWHD 13:36 | PROVIDERS: PCP Specialist; Referring Provider Specialist; Visit Provider Student in an Organized Health Care Education/Training Program | DX: I96 Gangrene, not elsewhere classified (principal); S80.12XA Contusion of left lower leg, initial encounter; X58.XXXA Exposure to other specified factors, initial encounter; R60.0 Localized edema; I49.9 Cardiac arrhythmia, unspecified; J45.909 Unspecified asthma, uncomplicated | CPT/HCPCS: 99213; A9270; G0463 ==

== ENCOUNTER → 2024-09-06 | Outpatient (CLI) | payer MEDICARE, SELFPAY | END | disposition home or self-care (01) | LOC: SWHD 09:50 | PROVIDERS: PCP Specialist; Referring Provider Specialist; Visit Provider Student in an Organized Health Care Education/Training Program | DX: I96 Gangrene, not elsewhere classified (principal); S80.12XA Contusion of left lower leg, initial encounter; X58.XXXA Exposure to other specified factors, initial encounter; R60.0 Localized edema; I49.9 Cardiac arrhythmia, unspecified; J45.909 Unspecified asthma, uncomplicated | CPT/HCPCS: 99213; A9270; G0463 ==

== ENCOUNTER → 2024-09-13 | Outpatient (CLI) | payer MEDICARE, SELFPAY | END | disposition home or self-care (01) | LOC: SWHD 09:21 | PROVIDERS: PCP Specialist; Referring Provider Specialist; Visit Provider Surgery | DX: I96 Gangrene, not elsewhere classified (principal); S80.12XA Contusion of left lower leg, initial encounter; X58.XXXA Exposure to other specified factors, initial encounter; R60.0 Localized edema; I49.9 Cardiac arrhythmia, unspecified; J45.909 Unspecified asthma, uncomplicated | CPT/HCPCS: 11042; A9270 ==

== ENCOUNTER → 2024-09-20 | Outpatient (CLI) | payer MEDICARE, SELFPAY | END | disposition home or self-care (01) | LOC: SWHD 09:36 | PROVIDERS: PCP Specialist; Referring Provider Specialist; Visit Provider Physician Assistant | DX: I96 Gangrene, not elsewhere classified (principal); S80.12XA Contusion of left lower leg, initial encounter; X58.XXXA Exposure to other specified factors, initial encounter; J45.909 Unspecified asthma, uncomplicated | CPT/HCPCS: 97597; A9270 ==

== ENCOUNTER → 2024-09-27 | Outpatient (CLI) | payer MEDICARE, SELFPAY | END | disposition home or self-care (01) | LOC: SWHD 09:45 | PROVIDERS: PCP Specialist; Referring Provider Specialist; Visit Provider Surgery | DX: S80.12XA Contusion of left lower leg, initial encounter (principal); W19.XXXA Unspecified fall, initial encounter; J45.909 Unspecified asthma, uncomplicated; I50.9 Heart failure, unspecified; I49.9 Cardiac arrhythmia, unspecified | CPT/HCPCS: 99213; A9270; G0463 ==

== ENCOUNTER → 2024-10-11 | Outpatient (CLI) | payer MEDICARE, SELFPAY | END | disposition home or self-care (01) | LOC: SWHD 09:38 | PROVIDERS: PCP Specialist; Referring Provider Specialist; Visit Provider Surgery | DX: S80.12XA Contusion of left lower leg, initial encounter (principal); W19.XXXA Unspecified fall, initial encounter; J45.909 Unspecified asthma, uncomplicated; I50.9 Heart failure, unspecified; I49.9 Cardiac arrhythmia, unspecified | CPT/HCPCS: 11042 ==

== ENCOUNTER → 2024-10-15 | Outpatient (CLI) | payer MEDICARE, SELFPAY ==
[2024-10-15 13:50] LABS: Glucose Estimated Average 114 mg/dL (80-131); Hemoglobin A1C 5.6 % Hgb (4.8-6.0)
[2024-10-15 13:58] LABS: Alanine Aminotransferase 23 U/L (10-49); Albumin, Serum 4.2 gm/dL (3.4-4.8); Alkaline Phosphatase 70 U/L (46-116); Anion Gap 8 (7-16); Aspartate Amino Transferase 24 U/L (0-34); BUN/Creatinine Ratio 14 Ratio (12-20); Bilirubin,Total 0.8 mg/dL (0.3-1.2); Blood Urea Nitrogen 22 mg/dL (9-23); Calcium 9.1 mg/dL (8.3-10.6); Calcium (Corrected) 9.1 mg/dL (8.5-10.1); Cardiac Risk Estimate 2.8 RATIO (4.0-6.7); Chloride 101 mMol/L (98-107); Cholesterol 182 mg/dL (132-200); Creatinine (Component) 1.6 mg/dL (0.6-1.3); Free T4 (Free Thyroxine) 1.31 ng/dL (0.89-1.76); Globulin 2.1 gm/dL (2.3-3.5); Glucose 96 mg/dL (74-106); HDL Cholesterol 66 mg/dL (40-60); LDL Cholesterol,Calculated 62 mg/dL (0-130); Osmolality,Calculated 286 (275-295); Potassium 4.3 mMol/L (3.4-5.1); Sodium 142 mMol/L (136-145); Total Protein 6.3 gm/dL (5.7-8.2); Triglycerides 269 mg/dL (30-150); eGFR 43 See Note
[2024-10-15 14:03] LABS: Creatinine MALB Rnd Ur 40 mg/dL (30-125); Microalbumin, Random Urine < 3 mg/L (0-300)
== END | disposition home or self-care (01) ==
PROVIDERS: PCP Specialist; Referring Provider Specialist; Visit Provider Specialist
DX: E11.65 Type 2 diabetes mellitus with hyperglycemia (principal); E03.8 Other specified hypothyroidism; E78.2 Mixed hyperlipidemia
CPT/HCPCS: 36415; 80053; 80061; 82043; 82570; 83036; 84439; 84443

== ENCOUNTER → 2024-10-25 | Outpatient (CLI) | payer MEDICARE, SELFPAY | END | disposition home or self-care (01) | LOC: SWHD 13:07 | PROVIDERS: PCP Specialist; Referring Provider Specialist; Visit Provider Student in an Organized Health Care Education/Training Program | DX: S80.12XA Contusion of left lower leg, initial encounter (principal); W19.XXXA Unspecified fall, initial encounter; J45.909 Unspecified asthma, uncomplicated; I50.9 Heart failure, unspecified; I49.9 Cardiac arrhythmia, unspecified | CPT/HCPCS: 17250; A9270 ==

== ENCOUNTER → 2024-11-08 | Outpatient (CLI) | payer MEDICARE, SELFPAY | END | disposition home or self-care (01) | LOC: SWHD 09:51 | PROVIDERS: PCP Specialist; Referring Provider Specialist; Visit Provider Surgery | DX: S80.12XA Contusion of left lower leg, initial encounter (principal); W19.XXXA Unspecified fall, initial encounter; J45.909 Unspecified asthma, uncomplicated; I50.9 Heart failure, unspecified; I49.9 Cardiac arrhythmia, unspecified | CPT/HCPCS: 11042; A9270 ==

== ENCOUNTER → 2024-11-11 | Outpatient (CLI) | payer MEDICARE, SELFPAY ==
[2024-11-11 08:58] LABS: Collection Type, Urine Clean Catch; Squamous Epithelial Cell,Urine 0 /hpf (0-5); WBC,Urine 0 /hpf (0-5)
[2024-11-11 09:38] LABS: Basophils % (Auto) 1 % (0-2.5); Eosinophils # (Auto) 0.2 Thou/mm3 (0.0-0.5); Eosinophils % (Auto) 3 % (0-10); Hematocrit 41.7 % (41.0-53.0); Hemoglobin 13.9 g/dL (13.5-16.0); Immature Granulocytes % (Auto) 0 % (0-0); Immature Granulocytes Auto 0.01 Thou/mm3 (0.00-0.00); Lymphocytes # (Auto) 1.6 Thou/mm3 (1.0-4.8); Lymphocytes % (Auto) 27 % (10-50); Mean Corpuscular HGB Conc 33.3 g/dl (31.0-37.0); Mean Corpuscular Hemoglobin 32.8 pg (25.0-35.0); Mean Corpuscular Volume 98 fL (80-100); Monocytes # (Auto) 0.7 Thou/mm3 (0.0-0.8); Monocytes % (Auto) 11 % (0-12); Neutrophils # (Auto) 3.4 Thou/mm3 (1.8-7.7); Neutrophils % (Auto) 58 % (37-80); Nucleated Red Blood Cell % 0 /100 WBC (0); Platelet Count 216 Thou/mm3 (140-440); RDW Standard Deviation 53.8 fL (35.1-43.9); Red Blood Count 4.24 Miln/mm3 (4.50-5.90); White Blood Count 5.9 Thou/mm3 (3.8-10.6)
[2024-11-11 09:46] LABS: Bilirubin,Urine Negative (Negative); Blood,Urine Negative (Negative); Clarity,Urine Clear (Clear/Hazy); Color,Urine Lt-Yellow (Lt Yel-Yel); Glucose, Urine Negative (Negative); Hyaline Casts,Urine < 1 /hpf (0-1); Ketones,Urine Negative (Negative); Leukocyte Esterase,Urine Negative (Negative); Nitrite,Urine Negative (Negative); PH,Urine 6.5 (5.0-7.0); Protein,Urine Negative (Neg - Trace); RBC,Urine 1 /hpf (0-3); Specific Gravity,Urine 1.008 (1.001-1.035); Urobilinogen,Urine Negative mg/dL (0.0-1.0)
[2024-11-11 09:49] LABS: Parathyroid Hormone Intact 86.1 pg/ml (18.5-88.0)
[2024-11-11 09:50] LABS: Albumin, Serum 4.5 gm/dL (3.4-4.8); Anion Gap 6 (7-16); BUN/Creatinine Ratio 13 Ratio (12-20); Blood Urea Nitrogen 22 mg/dL (9-23); Calcium 10.1 mg/dL (8.3-10.6); Calcium (Corrected) 10.1 mg/dL (8.5-10.1); Carbon Dioxide 31.9 mMol/L (20.0-31.0); Chloride 101 mMol/L (98-107); Creatinine (Component) 1.7 mg/dL (0.6-1.3); Glucose 96 mg/dL (74-106); Osmolality,Calculated 280 (275-295); Phosphorous 3.5 mg/dL (2.4-5.1); Sodium 139 mMol/L (136-145); eGFR 40 See Note
== END | disposition home or self-care (01) ==
LOC: COPL 08:25
PROVIDERS: PCP Specialist; Referring Provider Internal Medicine; Visit Provider Internal Medicine
DX: I12.9 Hypertensive chronic kidney disease with stage 1 through stage 4 chronic kidney disease, or unspecified chronic kidney disease (principal); N18.30 Chronic kidney disease, stage 3 unspecified
CPT/HCPCS: 36415; 80069; 81001; 83970; 85025

== ENCOUNTER → 2024-11-15 | Outpatient (CLI) | payer MEDICARE, SELFPAY | END | disposition home or self-care (01) | LOC: SWHD 09:57 | PROVIDERS: PCP Specialist; Referring Provider Specialist; Visit Provider Physician Assistant | DX: S80.12XA Contusion of left lower leg, initial encounter (principal); W19.XXXA Unspecified fall, initial encounter; J45.909 Unspecified asthma, uncomplicated; I50.9 Heart failure, unspecified; I49.9 Cardiac arrhythmia, unspecified | CPT/HCPCS: 97597; A9270 ==

== ENCOUNTER → 2024-11-29 | Outpatient (CLI) | payer MEDICARE, SELFPAY | END | disposition home or self-care (01) | LOC: SWHD 10:56 | PROVIDERS: PCP Specialist; Referring Provider Specialist; Visit Provider Surgery | DX: S80.12XA Contusion of left lower leg, initial encounter (principal); W19.XXXA Unspecified fall, initial encounter; J45.909 Unspecified asthma, uncomplicated; I50.9 Heart failure, unspecified; I49.9 Cardiac arrhythmia, unspecified | CPT/HCPCS: 11042; A9270 ==

== ENCOUNTER → 2024-12-13 | Outpatient (CLI) | payer MEDICARE, SELFPAY | END | disposition home or self-care (01) | LOC: SWHD 09:48 | PROVIDERS: PCP Specialist; Referring Provider Specialist; Visit Provider Surgery | DX: S80.12XA Contusion of left lower leg, initial encounter (principal); W19.XXXA Unspecified fall, initial encounter; J45.909 Unspecified asthma, uncomplicated; I50.9 Heart failure, unspecified; I49.9 Cardiac arrhythmia, unspecified | CPT/HCPCS: 97597; A9270 ==

== ENCOUNTER → 2024-12-27 | Outpatient (CLI) | payer MEDICARE, SELFPAY | END | disposition home or self-care (01) | LOC: SWHD 09:44 | PROVIDERS: PCP Specialist; Referring Provider Specialist; Visit Provider Student in an Organized Health Care Education/Training Program | DX: S80.12XA Contusion of left lower leg, initial encounter (principal); W19.XXXA Unspecified fall, initial encounter; J45.909 Unspecified asthma, uncomplicated; I50.9 Heart failure, unspecified; I49.9 Cardiac arrhythmia, unspecified | CPT/HCPCS: 97597; A9270 ==

== ENCOUNTER → 2025-01-10 | Outpatient (CLI) | payer MEDICARE, SELFPAY | END | disposition home or self-care (01) | LOC: SWHD 07:51 | PROVIDERS: PCP Specialist; Referring Provider Specialist; Visit Provider Surgery | DX: S80.12XA Contusion of left lower leg, initial encounter (principal); W19.XXXA Unspecified fall, initial encounter; J45.909 Unspecified asthma, uncomplicated; I50.9 Heart failure, unspecified; I49.9 Cardiac arrhythmia, unspecified | CPT/HCPCS: 97597; A9270 ==

== ENCOUNTER → 2025-01-23 | Outpatient (CLI) | payer MEDICARE, SELFPAY ==
[2025-01-23 09:59] LABS: Glucose Estimated Average 114 mg/dL (80-131); Hemoglobin A1C 5.6 % Hgb (4.8-6.0)
[2025-01-23 10:06] LABS: Prostate Specific Antigen 0.64 ng/mL (0-4.00)
[2025-01-23 10:17] LABS: Alanine Aminotransferase 16 U/L (10-49); Albumin, Serum 4.0 gm/dL (3.4-4.8); Albumin/Globulin Ratio 2.1 (1.2-2.2); Alkaline Phosphatase 65 U/L (46-116); Anion Gap 10 (7-16); Aspartate Amino Transferase 18 U/L (0-34); BUN/Creatinine Ratio 12 Ratio (12-20); Bilirubin,Total 0.8 mg/dL (0.3-1.2); Blood Urea Nitrogen 17 mg/dL (9-23); Calcium 10.0 mg/dL (8.3-10.6); Calcium (Corrected) 10.0 mg/dL (8.5-10.1); Carbon Dioxide 32.4 mMol/L (20.0-31.0); Cardiac Risk Estimate 2.7 RATIO (4.0-6.7); Chloride 102 mMol/L (98-107); Cholesterol 167 mg/dL (132-200); Creatinine (Component) 1.4 mg/dL (0.6-1.3); Free T4 (Free Thyroxine) 1.31 ng/dL (0.89-1.76); Globulin 1.9 gm/dL (2.3-3.5); Glucose 102 mg/dL (74-106); HDL Cholesterol 62 mg/dL (40-60); LDL Cholesterol,Calculated 56 mg/dL (0-130); Osmolality,Calculated 288 (275-295); Potassium 4.5 mMol/L (3.4-5.1); Sodium 144 mMol/L (136-145); Thyroid Stimulating Hormone 4.28 uIU/mL (0.55-4.78); Total Protein 5.9 gm/dL (5.7-8.2); Triglycerides 244 mg/dL (30-150); eGFR 50 See Note
[2025-01-23 10:23] LABS: Creatinine MALB Rnd Ur 185 mg/dL (30-125); Microalbumin Creat Ratio 2 mg/gCrea (<30); Microalbumin, Random Urine 4 mg/L (0-300)
== END | disposition home or self-care (01) ==
LOC: COPL 07:38
PROVIDERS: PCP Specialist; Referring Provider Specialist; Visit Provider Specialist
DX: E11.65 Type 2 diabetes mellitus with hyperglycemia (principal); E78.2 Mixed hyperlipidemia
CPT/HCPCS: 36415; 80053; 80061; 82043; 82570; 83036; 84153; 84439; 84443

== ENCOUNTER → 2025-01-24 | Outpatient (CLI) | payer MEDICARE, SELFPAY | END | disposition home or self-care (01) | LOC: SWHD 09:46 | PROVIDERS: PCP Specialist; Referring Provider Specialist; Visit Provider Surgery | DX: S80.12XA Contusion of left lower leg, initial encounter (principal); W19.XXXA Unspecified fall, initial encounter; J45.909 Unspecified asthma, uncomplicated; I50.9 Heart failure, unspecified; I49.9 Cardiac arrhythmia, unspecified | CPT/HCPCS: 97597; A9270 ==

== ENCOUNTER → 2025-02-07 | Outpatient (CLI) | payer MEDICARE, SELFPAY | END | disposition home or self-care (01) | LOC: SWHD 09:42 | PROVIDERS: PCP Specialist; Referring Provider Specialist; Visit Provider Student in an Organized Health Care Education/Training Program | DX: S80.12XA Contusion of left lower leg, initial encounter (principal); W19.XXXA Unspecified fall, initial encounter; J45.909 Unspecified asthma, uncomplicated; I49.9 Cardiac arrhythmia, unspecified; R60.0 Localized edema | CPT/HCPCS: 99213; G0463 ==

== ENCOUNTER → 2025-02-10 | Outpatient (CLI) | payer MEDICARE, SELFPAY ==
[2025-02-10 11:32] LABS: Basophils # (Auto) 0.1 Thou/mm3 (0.0-0.2); Basophils % (Auto) 1 % (0-2.5); Eosinophils # (Auto) 0.2 Thou/mm3 (0.0-0.5); Eosinophils % (Auto) 3 % (0-10); Hematocrit 41.5 % (41.0-53.0); Hemoglobin 14.0 g/dL (13.5-16.0); Immature Granulocytes Auto 0.02 Thou/mm3 (0.00-0.00); Lymphocytes # (Auto) 2.2 Thou/mm3 (1.0-4.8); Lymphocytes % (Auto) 28 % (10-50); Mean Corpuscular HGB Conc 33.7 g/dl (31.0-37.0); Mean Corpuscular Hemoglobin 34.2 pg (25.0-35.0); Mean Corpuscular Volume 102 fL (80-100); Monocytes # (Auto) 0.9 Thou/mm3 (0.0-0.8); Monocytes % (Auto) 11 % (0-12); Neutrophils # (Auto) 4.5 Thou/mm3 (1.8-7.7); Neutrophils % (Auto) 57 % (37-80); Nucleated Red Blood Cell # 0.00 Thou/mm3 (0.00-0.00); Nucleated Red Blood Cell % 0 /100 WBC (0); Platelet Count 207 Thou/mm3 (140-440); RDW Standard Deviation 51.7 fL (35.1-43.9); Red Blood Count 4.09 Miln/mm3 (4.50-5.90); White Blood Count 7.8 Thou/mm3 (3.8-10.6)
[2025-02-10 11:42] LABS: Collection Type, Urine Clean Catch; Squamous Epithelial Cell,Urine 0 /hpf (0-5)
[2025-02-10 11:46] LABS: Albumin, Serum 4.4 gm/dL (3.4-4.8); Anion Gap 7 (7-16); BUN/Creatinine Ratio 15 Ratio (12-20); Blood Urea Nitrogen 21 mg/dL (9-23); Calcium 9.7 mg/dL (8.3-10.6); Calcium (Corrected) 9.7 mg/dL (8.5-10.1); Carbon Dioxide 32.3 mMol/L (20.0-31.0); Chloride 101 mMol/L (98-107); Creatinine (Component) 1.4 mg/dL (0.6-1.3); Glucose 75 mg/dL (74-106); Osmolality,Calculated 281 (275-295); Phosphorous 3.5 mg/dL (2.4-5.1); Potassium 4.2 mMol/L (3.4-5.1); Sodium 140 mMol/L (136-145); eGFR 50 See Note
[2025-02-10 12:07] LABS: Bilirubin,Urine Negative (Negative); Blood,Urine Negative (Negative); Clarity,Urine Clear (Clear/Hazy); Color,Urine Lt-Yellow (Lt Yel-Yel); Glucose, Urine Negative (Negative); Ketones,Urine Negative (Negative); Leukocyte Esterase,Urine Negative (Negative); Nitrite,Urine Negative (Negative); PH,Urine 6.5 (5.0-7.0); Protein,Urine Negative (Neg - Trace); RBC,Urine 1 /hpf (0-3); Specific Gravity,Urine 1.008 (1.001-1.035); Urobilinogen,Urine Negative mg/dL (0.0-1.0); WBC,Urine < 1 /hpf (0-5)
== END | disposition home or self-care (01) ==
LOC: COPL 10:46
PROVIDERS: PCP Specialist; Referring Provider Internal Medicine; Visit Provider Internal Medicine
DX: I12.9 Hypertensive chronic kidney disease with stage 1 through stage 4 chronic kidney disease, or unspecified chronic kidney disease (principal); N18.30 Chronic kidney disease, stage 3 unspecified
CPT/HCPCS: 36415; 80069; 81001; 85025

== ENCOUNTER → 2025-02-21 | Outpatient (CLI) | payer MEDICARE, SELFPAY | END | disposition home or self-care (01) | LOC: SWHD 10:02 | PROVIDERS: PCP Specialist; Referring Provider Specialist; Visit Provider Student in an Organized Health Care Education/Training Program | DX: S80.12XA Contusion of left lower leg, initial encounter (principal); W19.XXXA Unspecified fall, initial encounter; J45.909 Unspecified asthma, uncomplicated; I49.9 Cardiac arrhythmia, unspecified; R60.0 Localized edema | CPT/HCPCS: 99213; A9270; G0463 ==

== ENCOUNTER → 2025-02-28 | Outpatient (CLI) | payer MEDICARE, SELFPAY | END | disposition home or self-care (01) | LOC: SWHD 10:02 | PROVIDERS: PCP Specialist; Referring Provider Specialist; Visit Provider Surgery | DX: S80.12XA Contusion of left lower leg, initial encounter (principal); W19.XXXA Unspecified fall, initial encounter; J45.909 Unspecified asthma, uncomplicated; I49.9 Cardiac arrhythmia, unspecified; R60.0 Localized edema | CPT/HCPCS: 99213; G0463 ==

== ENCOUNTER → 2025-03-14 | Outpatient (CLI) | payer MEDICARE, SELFPAY | END | disposition home or self-care (01) | LOC: SWHD 09:34 | PROVIDERS: PCP Specialist; Referring Provider Specialist; Visit Provider Surgery | DX: S80.12XA Contusion of left lower leg, initial encounter (principal); W19.XXXA Unspecified fall, initial encounter; J45.909 Unspecified asthma, uncomplicated; I49.9 Cardiac arrhythmia, unspecified; R60.0 Localized edema | CPT/HCPCS: 99212; G0463 ==